=== PATIENT | male | born 1965 | race Caucasian/White ===

== ENCOUNTER 2021-02-05 15:38 | Outpatient (CLI) | payer OTHER, SELFPAY ==
--- NOTE | ~2021-02-05 | XR_ITS ---
EXAMINATION: XR chest 2V DATE: 02/05/2021 15:57 INDICATION: Shortness of breath TECHNIQUE: PA and lateral views of the chest are obtained. COMPARISON: 01/03/2014 FINDINGS: The lungs are free of acute opacities. There is no pleural effusion or pneumothorax. The ca rdiomediastinal silhouette is normal. There are bridging osteophytes at multiple levels in the spine, consistent with diffuse idiopathic skeletal hyperostosis (DISH). IMPRESSION: 1. No acute cardiopulmonary abnormality. Reviewed, dictated and finalized at location A.
== END 2021-02-05 15:39 | disposition home or self-care (01) ==
PROVIDERS: PCP Internal Medicine; Visit Provider Internal Medicine
DX: R06.02 Shortness of breath (principal); R06.00 Dyspnea, unspecified
CPT/HCPCS: 71046

== ENCOUNTER 2021-02-16 07:40 | Outpatient (CLI) | payer OTHER, SELFPAY ==
--- NOTE | 2021-02-16 | EST_ITS ---
Patient Info Name: Calvin Gomez Age: 55 years : 1965 Gender: Male Ht: 72 in Wt: 322 lbs BSA: 2.79 m2 HR: 66 bpm BP: 132 / 79 mmHg Heart Rhythm: Sinus Rhythm Exam Date: 02/16/2021 10:05 AM Exam Location: [facility] Stress Patient Status: Outpatient Admit Date: 02/16/2021 Staff Ordering Physician: Yaz Santiago NP Attending Provider: Yaz Santiago NP Exercise Technologist: Diana Neville [facility] Exercise Physician: Jose Roberto Campoverde DO Exam Type: CA stress slime w NM Study Info Indications R06.02 - Shortness of breath R07.89 - Other chest pain A regadenoson stress test was performed. Summary 1. 1. Negative lexiscan stress test for ischemic ST changes by ECG criteria. 2. 2. Stable hemodynamics throughout the test. 3. 3. Nuclear scan to follow and will be reported separately. Please correlate with it. 4. 4. Patient informed of the above results. Protocol: Lexiscan Stress ECG Details Stage: REST Duration (min): 1 min : 29 sec HR (bpm): 66 SBP (mmHg): 132 DBP (mmHg): 79 Stage: REST Duration (min): 8 min : 42 sec HR (bpm): 72 SBP (mmHg): 132 DBP (mmHg): 79 Stage: STAGE 1 Duration (min): 0 min : 59 sec HR (bpm): 71 SBP (mmHg): 129 DBP (mmHg): 79 Stage: RECOVERY Duration (min): 1 min : 0 sec HR (bpm): 86 SBP (mmHg): 129 DBP (mmHg): 79 Stage: RECOVERY Duration (min): 2 min : 0 sec HR (bpm): 79 SBP (mmHg): 129 DBP (mmHg): 79 Stage: RECOVERY Duration (min): 3 min : 0 sec HR (bpm): 78 SBP (mmHg): 131 DBP (mmHg): 80 Stage: RECOVERY Duration (min): 3 min : 14 sec HR (bpm): 75 SBP (mmHg): 131 DBP (mmHg): 80 Rest HR: 72 bpm Peak HR: 86 bpm Rest Sys BP: 132 mmHg Peak Sys BP: 131 mmHg Max Pred HR: 166 bpm % Max Pred HR: 52 % Target HR: 141 bpm Max RPP: 11,266 bpm*mmHg Termination Reason: Completed protocol Cardiac Symptoms: None Total Time: 1 min : 0 sec Rest Snell BP: 79 mmHg Peak Snell BP: 80 mmHg Total Dose: 0.4 mg Resting ECG Sinus rhythm. Stress ECG No ST changes. Arrhythmias None. Report Signatures
--- NOTE | 2021-02-16 | ECHO_ITS ---
Patient Info Name: Calvin Gomez Age: 55 years : 1965 Gender: Male Ht: 72 in Wt: 322 lbs BSA: 2.79 m2 HR: 65 bpm BP: 132 / 79 mmHg Heart Rhythm: Sinus Rhythm Exam Date: 02/16/2021 8:38 AM Exam Location: [facility] Patient Status: Outpatient Admit Date: 02/16/2021 Staff Ordering Physician: Yaz Santiago NP Skylights Assembler: Diana Neville RDCS Attending Provider: Yaz Santiago NP Exam Type: CA echo doppler color flow Study Info Indications R06.02 - Shortness of breath R07.89 - Other chest pain Complete two-dimensional, color flow and Doppler transthoracic echocardiogram is performed. Summary 1. Complete two-dimensional, color flow and Doppler transthoracic echocardiogram is performed. 2. Left ventricular chamber dimension is normal. 3. Left ventricular systolic function is normal, estimated at 60-65%. 4. There is mildly increased left ventricular wall thickness. 5. The left ventricular diastolic function is grade II diastolic dysfunction. 6. E/e' 10 is mildly elevated. 7. Left atrial chamber dimension is mildly enlarged. 8. There is moderate aortic valve sclerosis. 9. There is mild mitral valve regurgitation. Left Ventricle E/e' 10 is mildly elevated. Left ventricular chamber dimension is normal. Left ventricular systolic function is normal, estimated at 60-65%. There is mildly increased left ventricular wall thickness. The left ventricular diastolic function is grade II diastolic dysfunction. Right Ventricle Right ventricular chamber dimension is normal. Right ventricular systolic function is normal. Left Atria Left atrial chamber dimension is mildly enlarged. Right Atria Right atrial chamber dimension is normal. Aortic Valve The aortic valve is trileaflet. There is moderate aortic valve sclerosis. There is no aortic valve stenosis. There is no aortic valve regurgitation. Pulmonic Valve There is no pulmonic regurgitation. Mitral Valve There is no mitral valve stenosis. There is mild mitral valve regurgitation. Tricuspid Valve There is no tricuspid valve regurgitation. Pericardium/Pleural There is no pericardial effusion. Inferior Vena Cava Normal inferior vena cava with >50% collapse upon inspiration consistent with normal right atrial pressure, 5 mmHg. Aorta The aortic root size at the sinus of Valsalva is normal. Left Ventricular Outflow Tract Name Value Normal LVOT 2D LVOT Diameter 2.0 cm LVOT Doppler LVOT Peak Gradient 6 mmHg LVOT Mean Gradient 3 mmHg LVOT VTI 29 cm LVOT VTI/AV VTI Ratio 0.7 LVOT Stroke Volume 94 ml LVOT CO 5.7 l/min LVOT CI 2.0 l/min/m2 Pulmonic Valve Name Value Normal RVOT Doppler
--- NOTE | ~2021-02-16 | NM_ITS ---
EXAMINATION: NM slime stress w perfusion DATE: 02/16/2021 11:05 INDICATION: Dyspnea on exertion. Left chest pain. TECHNIQUE: Rest images were obtained following intravenous administration of 9.6 mCi Tc99m tetrofosmi n (Myoview). The patient was infused intravenously with Lexiscan (regadenoson). Then, 27.8 mCi Tc99m tetrofosmin (Myoview) was administered intravenously, and stress images were obtained. Data was recon structed into short axis and horizontal and vertical long axis SPECT images. Gated SPECT images were also obtained. COMPARISON: Chest 2 views 02/05/2021 FINDINGS: There is no definite reversible or fixed perfusion abnormality to suggest ischemia or infar ction. There is no segmental wall motion abnormality. Left ventricular ejection fraction measures > 70%. IMPRESSION: 1. No definite ischemia or infarct. 2. Normal left ventricular ejection fraction measuring >70%. Reviewed, dictated and finalized at location A.
--- NOTE | 2021-02-20 07:14 | WPDHOLTEREM ---
Holter/Event Monitor Holter/Event Monitor Date of procedure: 02/16/21 Holter/Event Procedure: 24 Hr Holter Monitor Indications: SOB/CP Conclusion: 1. 24 hour holter monitor on 02/16/21. 2. Underlying rhythm is sinus rhythm. HR range 52-122 bpm; average HR 78 bpm. 3. There are 8 premature supraventricular complexes. No supraventricular tachycardia. 4. No premature ventricular complexes. No ventricular tachycardia. 5. No sinoatrial or atrioventricular blocks. No significant pauses greater than 2 seconds. 6. Patient reports symptom of chest pain which demonstrate sinus tachycardia at 103 bpm.
== END 2021-02-16 07:41 | disposition home or self-care (01) ==
LOC: ANHCARD 07:52
PROVIDERS: PCP Internal Medicine
DX: Z20.822 Contact with and (suspected) exposure to COVID-19 (principal); E66.9 Obesity, unspecified; E11.9 Type 2 diabetes mellitus without complications; E78.5 Hyperlipidemia, unspecified; Z13.6 Encounter for screening for cardiovascular disorders
CPT/HCPCS: 78452; 93017; 93225; 93226; 93306; A9502; J2785

== ENCOUNTER 2021-02-25 10:36 | Outpatient (CLI) | payer OTHER, SELFPAY ==
--- NOTE | ~2021-02-25 | US_ITS ---
EXAMINATION: US art doppler w press LE BI DATE: 02/25/2021 12:44 CDT INDICATION: Diabetes. Leg pain. TECHNIQUE: Segmental pressures and plethysmographic and Doppler waveforms of the brachial and lower e xtremity arteries were obtained. COMPARISON: None. FINDINGS: Right and left brachial artery pressures of 140 mm Hg and 151 mm Hg, respectively, are concordant (no rmal difference <= 30 mmHg). The right high-thigh pressure index is 1.23 (normal > 1.2). The right ankle-brachial index (ANAND) is 1 .28 (normal >= 0.9-1.0). The right great toe-brachial index (TBI) is 0.92 (normal >= 0.60). The right lower extremity segmental pressure gradients are normal (normal gradients <= 20-30 mmHg between irma cent levels on the same leg or the same levels on the two legs). Arterial Doppler waveforms are bipha sic. The left high-thigh pressure index isn't measurable. The left ANAND is 1.05. The left TBI is 1.03. The left lower extremity segmental pressure gradients are normal. Arterial Doppler waveforms are biphasic . IMPRESSION: 1. Normal bilateral ankle and toe brachial indices. Reviewed, dictated and finalized at location A.
== END 2021-02-25 10:37 | disposition home or self-care (01) ==
LOC: ANHIMG 10:37
PROVIDERS: PCP Internal Medicine
DX: E66.9 Obesity, unspecified (principal); E11.9 Type 2 diabetes mellitus without complications; E78.5 Hyperlipidemia, unspecified; Z13.6 Encounter for screening for cardiovascular disorders
CPT/HCPCS: 93923

== ENCOUNTER 2021-07-23 08:21 | Outpatient (CLI) | payer OTHER, SELFPAY ==
--- NOTE | ~2021-07-23 | XR_ITS ---
EXAMINATION: XR lumbar spine 2-3V DATE: 07/23/2021 08:40 INDICATION: Low back pain. Left-sided radiculopathy. TECHNIQUE: 3 views of lumbar spine were obtained. COMPARISON: Lumbar spine radiographs 04/28/2017 FINDINGS: Bone alignment is normal. Vertebral body heights are normal. There are likely chronic bilat eral L5 pars defects. There is mildly decreased disc height at L3-L4 and moderately decreased disc he ight at L5-S1. There are endplate osteophytes at most levels. There is multilevel facet joint osteoar thritis, severe in lower lumbar spine. Surgical clips in the right upper quadrant are likely from cho lecystectomy. IMPRESSION: 1. Moderate lower lumbar spondylosis. 2. Chronic bilateral L5 pars defects. No spondylolisthesis. Reviewed, dictated and finalized at location B. 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
== END 2021-07-23 08:22 | disposition home or self-care (01) ==
LOC: ANHIMG 08:25
PROVIDERS: PCP Internal Medicine; Visit Provider Internal Medicine
DX: M47.816 Spondylosis without myelopathy or radiculopathy, lumbar region (principal)
CPT/HCPCS: 72100

== ENCOUNTER 2022-12-23 16:35 | Outpatient (CLI) | payer OTHER, SELFPAY ==
--- NOTE | ~2022-12-23 | XR_ITS ---
EXAMINATION: XR chest 2V 12/23/2022 16:47 INDICATION: Dyspnea PROCEDURE: 2 view chest COMPARISON: 02/05/2021 FINDINGS: The lungs are clear. The cardiomediastinal silhouette is within normal limits. There are no pleural effusions. There is no pneumothorax suspected. IMPRESSION: 1: NO ACUTE CARDIOPULMONARY DISEASE. Reviewed, dictated and finalized at location L.
== END 2022-12-23 16:36 | disposition home or self-care (01) ==
LOC: ANHIMG 16:37
PROVIDERS: PCP Internal Medicine; Visit Provider Internal Medicine
DX: R06.00 Dyspnea, unspecified (principal)
CPT/HCPCS: 71046

== ENCOUNTER 2023-02-02 13:48 | Outpatient (CLI) | payer OTHER, SELFPAY ==
--- NOTE | 2023-02-02 15:07 | PCRCNOTE ---
PT CAME IN FOR PULMONARY FUNCTION TESTING, DURING FIRST FLOW VOLUME LOOP PT PASSED OUT AND HIT HIS HEAD ON PRONGS ON PLETHYSMOGRAPHY BOX. PT CAME TO AFTER ABOUT 2 SECONDS. PT STATES HE FELT STRANGE. NO VISIBLE INJURY. DR ORONA'S OFFICE NOTIFIED AND DR ORONA SUGGESTED PT GO TO ER FOR EVALUATION. PT WAS AGREEABLE AND WENT TO ER FOR EVALUATION.
== END 2023-02-02 13:49 | disposition home or self-care (01) ==
LOC: ANHPFT 13:49
PROVIDERS: PCP Internal Medicine; Visit Provider Internal Medicine
DX: R06.02 Shortness of breath (principal)
CPT/HCPCS: 99199

== ENCOUNTER 2023-02-02 14:32 | Emergency (ER) | payer OTHER, SELFPAY ==
[2023-02-02] VITALS (37 sets, daily range): BP systolic 116–143; BP diastolic 72–93; PULSE 61–74; RESP 12–18; TEMP 36.6; O2SAT 94–100
--- NOTE | ~2023-02-02 | CT_ITS ---
EXAMINATION: CT BRAIN W/O DATE: 02/02/2023 18:36 INDICATION: Head injury. Syncope. TECHNIQUE: Computed tomography (CT) of the head was performed without intravenous contrast. The dose- length product was 681.00 mGy-cm. COMPARISON: No prior studies for comparison. FINDINGS: Normal mcneil-white differentiation. No acute intracranial hemorrhage, infarction, mass or ma ss effect. No ventriculomegaly or midline shift. Midline sagittal images demonstrate a normal corpus callosum, c raniovertebral junction and sella turcica. Basilar cisterns are patent. There is mild atrophy of the cerebellum, accelerated for age. Paranasal sinuses and mastoids are pneumatized. No depressed skull fractures. IMPRESSION: 1. Mild cerebellar atrophy, accelerated for age. No acute intracranial abnormality. Reviewed, dictated and finalized at location A. IMPRESSION: 1. Mild cerebellar atrophy, accelerated for age. No acute intracranial abnormal ity.
--- NOTE | ~2023-02-02 | XR_ITS ---
XR chest 2V 02/02/2023 17:30 Indication: Syncope. Intermittent chest pain. Procedure: 2 view chest Comparison: 12/23/2022 Findings: Heart size normal. No focal air space disease, pulmonary edema, pleural effusion or suspect ed pneumothorax. Calcified granuloma right lung base. Moderate thoracic spondylosis. Impression: 1: No acute cardiopulmonary disease. Reviewed, dictated and finalized at location A. Impression: 1: No acute cardiopulmonary disease.
--- NOTE | ~2023-02-02 | US_ITS ---
EXAMINATION:US venous doppler LE BI INDICATION:Syncope TECHNIQUE: Multiple grayscale, color flow and Doppler images of the right and left lower extremity de ep venous systems were obtained and reviewed. COMPARISON:No prior studies for comparison. FINDINGS: The common femoral, superficial femoral and popliteal veins demonstrate normal respiratory variation, augmentation and compressibility. Color flow is also seen within the posterior tibial, pe roneal, greater saphenous and profunda veins. IMPRESSION: 1: No lower extremity deep venous thrombosis. Reviewed, dictated and finalized at location A.
--- NOTE | 2023-02-02 14:39 | ECG_ITS ---
Measurements Intervals Golden Rate: 64 P: 31 DC: 198 QRS: -3 QRSD: 93 T: 35 QT: 394 QTc: 409 Interpretive Statements SINUS RHYTHM EARLY PRECORDIAL R/S TRANSITION CONSIDER INFERIOR INFARCT, AGE INDETERMINATE ABNORMAL ECG NO PREVIOUS ECG AVAILABLE FOR COMPARISON Electronically Signed On 02-02-2023 21:08:14 CDT by Jose Roberto Campoverde D.O.
[2023-02-02 15:34] LABS: Basophils Absolute Auto 0.1 K/mm3 (0.0-0.1); Basophils Percent Auto 0.9 % (0.2-1.2); Eosinophils Absolute Auto 0.2 K/mm3 (0-0.3); Eosinophils Percent Auto 2.3 % (0-4.4); Hematocrit 45.1 % (42.0-52.0); Hemoglobin 14.9 g/dL (14.0-18.0); Immature Granulocyte Absolute 0.02 K/mm3 (0.00-0.031); Immature Granulocyte Percent A 0.3 % (0-0.5); Lymphocytes Absolute Auto 2.32 K/mm3 (0.9-3.2); Mean Corpuscular Hemoglobin 29.9 pg (26-34); Mean Corpuscular Volume 90.4 fl (80-100); Mean Platelet Volume 10.5 fl (7.4-10.4); Monocytes Absolute Auto 0.5 K/mm3 (0.1-0.6); Monocytes Percent Auto 7.3 % (2.6-8.5); Neutrophils Absolute Auto 3.4 K/mm3 (1.3-6.7); Neutrophils Percent Auto 53.2 % (45.5-73.1); Platelet Count Result 241 k/mm3 (150-375); Red Blood Count 4.99 M/mm3 (4.6-6.20); Red Cell Distribution Width 13.5 % (11.5-14.5); White Blood Count 6.5 K/mm3 (4.5-10.0)
[2023-02-02 15:49] LABS: Alanine Aminotransferase 147 U/L (6-50); Albumin Level 4.7 g/dL (3.5-5.1); Alkaline Phosphatase 97 U/L (38-126); Anion Gap 11 mmol/L (8-16); Aspartate Amino Transferase 131 U/L (17-59); Bilirubin,Total 0.9 mg/dL (0.2-1.3); Blood Urea Nitrogen 20 mg/dL (9-20); Calcium 9.3 mg/dL (8.4-10.2); Carbon Dioxide 24 mmol/L (22-30); Chloride 101 mmol/L (98-107); Estimated CRCL calculation 125 ml/min; Estimated Glomerular Filt Rate > 60; Glucose 125 mg/dL (65-110); Potassium 3.8 mmol/L (3.4-5.0); Sodium 136 mmol/L (137-145)
[2023-02-02 18:09] LABS: Partial Thromboplastin Time 28.2 SECONDS (22.3-36.8); Prothrombin Time 13.6 Seconds (11.1-14.7)
--- NOTE | 2023-02-02 18:23 | ED.SYNCOPE ---
HPI - Syncope General Chief Complaint: Syncope Stated Complaint: syncopal episode during a pulmonary function test Time Seen by Provider: 02/02/23 17:18 Source: patient Mode of arrival: ambulatory Limitations: no limitations History of Present Illness HPI narrative: This is a 57 year old male that presents to the ER after a syncopal episode today. Reports he was doing a pulmonary function test to evaluate for possible COPD. He was taking his second deep breath when he passed out. Reports he hit his head. Reports the tech told him he was out for a few seconds. Reports he has not passed out before. He has been having trouble with tightness in the chest and shortness of breath for which he has been evaluated by his PCP. Reports feeling foggy in the head currently and some tightness in his chest. Also reports some lower extremity edema. Denies fever, cough, vision changes, vomiting, numbness or weakness. Related Data Home Medications Medication Instructions Recorded Confirmed amlodipine 10 mg tablet 10 mg PO DAILY 03/29/22 09/01/22 aspirin 81 mg tablet,delayed 81 mg PO DAILY 03/29/22 09/01/22 release (Adult Low Dose Aspirin) atorvastatin 10 mg tablet 10 mg PO DAILY 03/29/22 09/01/22 diclofenac potassium 25 mg capsule 25 mg PO BID 03/29/22 09/01/22 empagliflozin 10 mg tablet 10 mg PO DAILY 03/29/22 09/01/22 (Jardiance) metformin 500 mg tablet 500 mg PO BID 03/29/22 09/01/22 montelukast 10 mg tablet 10 mg PO DAILY 03/29/22 09/01/22 nebivolol 5 mg tablet 5 mg PO DAILY 03/29/22 09/01/22 nebivolol 5 mg tablet (Bystolic) 5 mg PO DAILY 03/29/22 09/01/22 omeprazole 40 mg capsule,delayed 40 mg PO DAILY 03/29/22 09/01/22 release semaglutide 0.25 mg or 0.5 mg (2 0.25 mg subcut WEEKLY 03/29/22 09/01/22 mg/1.5 mL) subcutaneous pen injector (Ozempic) Allergies Allergy/AdvReac Type Severity Reaction Status Date / Time Sulfa (Sulfonamide Allergy Unknown unknown Verified 02/02/23 14:33 Antibiotics) Review of Systems Review of Systems: CONSTITUTIONAL: Denies fever EYES: Denies visual changes CARDIOVASCULAR: Reports chest tightness, and edema. RESPIRATORY: Denies cough or dyspnea. GASTROINTESTINAL: Denies vomiting NEUROLOGIC: Denies headache, numbness, or weakness. All systems reviewed & are unremarkable except as noted in HPI and below PMFSH Past Medical History Medical History Acid reflux History of stress test (~2017) Sleep apnea Surgical History Surgical History History of carpal tunnel surgery (~2016) History of cholecystectomy (~1991) History of dental surgery (~1985) [place] teeth removal History of removal of cyst (~2012) Family History Family History Mother Family history of kidney disease Father Family history of congenital heart disease Social History Social History Smoking status: Former smoker Tobacco type: cigarettes Smoking end date: 07/11/06 Alcohol intake: current Substance use: never Substance use type: does not use Lack of Transportation: No Lack of Food: Never True Current Housing: I Have Housing Concerned About Future Housing: No Difficulty Paying Gas/Electric Bills: No Difficulty Paying for Meds: No Currently Unemployed: No Education: Bachelor's Degree Difficulty w/ Childcare or Family Care: No Exam Narrative: GENERAL: Well-appearing, well-nourished, and in no acute distress. HEAD: Normocephalic, atraumatic. EYES: PERRLA and EOMI. ENT: Nares clear, no rhinorrhea or epistaxis. Mucous membranes moist. Oropharynx without tonsillar hypertrophy exudate or other lesions. Bilateral TMs pearly mcneil non-bulging NECK: Supple. No adenopathy or masses. CHEST: Clear to auscultation. No respiratory distress. No wheezes rales
[2023-02-02 18:25] LABS: Troponin I < 0.012 ng/mL (0.000-0.034)
[2023-02-02 18:52] LABS: D Dimer 0.32 ug/mL (<0.48)
[2023-02-02 18:54] LABS: NT Pro B Type Natriuretic Pept < 20 pg/mL (19.9-100)
[2023-02-02 21:29] LABS: Troponin I < 0.012 ng/mL (0.000-0.034)
== END 2023-02-02 21:52 | disposition home or self-care (01) ==
PROVIDERS: Preventive Medicine Aerospace Medicine; Emergency Provider Physician Assistant; PCP Internal Medicine
DX: R55 Syncope and collapse (principal); S09.90XA Unspecified injury of head, initial encounter; K21.9 Gastro-esophageal reflux disease without esophagitis; G47.30 Sleep apnea, unspecified; W19.XXXA Unspecified fall, initial encounter
CPT/HCPCS: 36415; 70450; 71046; 80053; 83880; 84484; 85025; 85380; 85610; 85730; 93005; 93970; 99284

== ENCOUNTER 2023-07-18 12:10 | Outpatient (CLI) | payer OTHER, SELFPAY ==
--- NOTE | ~2023-07-18 | XR_ITS ---
Clinical Indication: Dyspnea PA and lateral views of the chest: Comparison: 02/02/2023 Findings: Stable calcified right basilar granuloma. The lungs are otherwise clear, without evidence o f focal consolidation or pleural effusion. Cardiomediastinal silhouette is within normal limits. Bon es and soft tissues are unremarkable. Impression: No acute abnormality. Reviewed, dictated and finalized at location . 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
== END 2023-07-18 12:11 | disposition home or self-care (01) ==
PROVIDERS: PCP Internal Medicine; Visit Provider Internal Medicine
DX: R06.00 Dyspnea, unspecified (principal)
CPT/HCPCS: 71046

== ENCOUNTER 2024-01-05 00:46 | Day surgery (SDC) | payer OTHER, SELFPAY ==
[2023-12-21 13:09] VITALS: BMI 43.4
[2024-01-05 06:28] VITALS: BP 140/90; PULSE 96; RESP 17; TEMP 36; O2SAT 97; BMI 43.1
[2024-01-05] MEDS: LACTATED RINGERS 1,000 ML 150 ML IV CONT (06:39)
[2024-01-05 06:42] LABS: Glucose Point of Care 203 mg/dl (65-105)
--- NOTE | 2024-01-05 07:08 | WPDANESEPPF ---
Anes - Initial Pre Proc Eval Procedure: Operation Date: 01/05/24 07:30 Proposed Procedures p Colonoscopy - Jerardo Coughlin MD Date/Time: 01/05/24 07:08 Surgeon: Jerardo Coughlin MD Pre Op Diagnosis: Hemorrhage of anus/rectum Patient Data Age: 58 Gender: M Height: 1.83 m Weight: 144.3 kg Last Vital Signs Temp 96.8 F L 01/05/24 06:28 Pulse 96 01/05/24 06:28 Resp 17 01/05/24 06:28 BP 140/90 01/05/24 06:28 Pulse Ox 97 01/05/24 06:28 O2 Del Method Room Air 01/05/24 06:28 Allergies Allergy/AdvReac Type Severity Reaction Status Date / Time Sulfa (Sulfonamide Allergy Unknown unknown Verified 01/05/24 06:27 Antibiotics) Home Medications Medication Instructions Recorded Confirmed Type aspirin 81 mg tablet,delayed 81 mg PO DAILY 03/29/22 01/05/24 History release (Adult Low Dose Aspirin) atorvastatin 10 mg tablet 10 mg PO DAILY 03/29/22 01/05/24 History empagliflozin 10 mg tablet 10 mg PO DAILY 03/29/22 01/05/24 History (Jardiance) metformin 500 mg tablet 500 mg PO BID 03/29/22 01/05/24 History montelukast 10 mg tablet 10 mg PO DAILY 03/29/22 01/05/24 History nebivolol 5 mg tablet (Bystolic) 5 mg PO DAILY 03/29/22 01/05/24 History omeprazole 40 mg capsule,delayed 40 mg PO DAILY 03/29/22 01/05/24 History release semaglutide 0.25 mg or 0.5 mg (2 0.25 mg subcut WEEKLY 03/29/22 01/05/24 History mg/1.5 mL) subcutaneous pen injector (Ozempic) Laboratory Tests 01/05/24 06:34 POC Capillary Glucose 203 H mg/dl (65-105) Patient hx anesthesia problems: none Family hx anesthesia problems: none Results Review: All pre-operative results and documents have been reviewed as part of the pre-operative evaluation. [facility] Past Medical History Medical History Acid reflux History of stress test (~2017) Sleep apnea Surgical History Surgical History History of carpal tunnel surgery (~2016) History of cholecystectomy (~1991) History of dental surgery (~1985) [place] teeth removal History of removal of cyst (~2012) Family History Family History Mother Family history of kidney disease Father Family history of congenital heart disease Social History Social History Smoking status: Former smoker Tobacco type: cigarettes Smoking end date: 07/11/06 Alcohol intake: current Substance use: never Substance use type: does not use Lack of Transportation: No Lack of Food: Never True Current Housing: I Have Housing Concerned About Future Housing: No Difficulty Paying Gas/Electric Bills: No Difficulty Paying for Meds: No Currently Unemployed: No Education: Bachelor's Degree Difficulty w/ Childcare or Family Care: No Living arrangements: with family Spiritual care concerns: No Anes - Eval Final PreProcedure Day of Procedure 01/05/24 07:08 Patient weight: obese Heart: regular rate and rhythm Lungs: clear to auscultation Airway: Mallampati scale class II and special considerations (Many missing teeth, upper and lower, none loose per his report. ) Neurological: alert and oriented Last oral intake: >/= 8 hours ASA classification: III Emergent: no Anesthetic plan: proceed Anesthesia type and monitoring: general GIVS and standard monitoring Results Review: All pre-operative results and documents have been reviewed as part of the pre-operative evaluation. HTN, VICKIE on CPAP, DM ([phone]). Informed Consent: The patient's anesthetic plan and its attendant risks and benefits were discussed with the patient/family/POA. Questions were solicited and answers provided to the satisfaction of the patient/family/POA.
--- NOTE | 2024-01-05 07:19 | PM.HPGS ---
History of Present Illness History of Present Illness Consent: Risks, benefits, and alternatives have been discussed and questions answered. Patient agrees to proceed with procedure. Chief complaint: Hemorrhage of anus/rectum Narrative: Calvin Gomez is a 58 year old male with blood in stool, last colonoscopy ~ 5 years ago Review of Systems Review of Systems: All systems reviewed & are unremarkable except as noted in HPI and below PMFSH Past Medical History Medical History (Updated 01/05/24 @ 07:20 by Jerardo Coughlin MD) Acid reflux History of stress test (~2017) Rectal bleeding Sleep apnea Surgical History Surgical History History of carpal tunnel surgery (~2016) History of cholecystectomy (~1991) History of dental surgery (~1985) [place] teeth removal History of removal of cyst (~2012) Family History Family History Mother Family history of kidney disease Father Family history of congenital heart disease Social History Social History Smoking status: Former smoker Tobacco type: cigarettes Smoking end date: 07/11/06 Alcohol intake: current Substance use: never Substance use type: does not use Lack of Transportation: No Lack of Food: Never True Current Housing: I Have Housing Concerned About Future Housing: No Difficulty Paying Gas/Electric Bills: No Difficulty Paying for Meds: No Currently Unemployed: No Education: Bachelor's Degree Difficulty w/ Childcare or Family Care: No Living arrangements: with family Spiritual care concerns: No Meds Home Medications and Allergies Home Medications Medication Instructions Recorded Confirmed Type aspirin 81 mg tablet,delayed 81 mg PO DAILY 03/29/22 01/05/24 History release (Adult Low Dose Aspirin) atorvastatin 10 mg tablet 10 mg PO DAILY 03/29/22 01/05/24 History empagliflozin 10 mg tablet 10 mg PO DAILY 03/29/22 01/05/24 History (Jardiance) metformin 500 mg tablet 500 mg PO BID 03/29/22 01/05/24 History montelukast 10 mg tablet 10 mg PO DAILY 03/29/22 01/05/24 History nebivolol 5 mg tablet (Bystolic) 5 mg PO DAILY 03/29/22 01/05/24 History omeprazole 40 mg capsule,delayed 40 mg PO DAILY 03/29/22 01/05/24 History release semaglutide 0.25 mg or 0.5 mg (2 0.25 mg subcut WEEKLY 03/29/22 01/05/24 History mg/1.5 mL) subcutaneous pen injector (Ozempic) Allergies Allergy/AdvReac Type Severity Reaction Status Date / Time Sulfa (Sulfonamide Allergy Unknown unknown Verified 01/05/24 06:27 Antibiotics) Vital Signs Vital Signs - 24 hr 01/05/24 06:28 Temperature 96.8 F L Pulse Rate 96 Respiratory Rate 17 Blood Pressure 140/90 Pulse Oximetry 97 Oxygen Delivery Room Air Exam Const: General: comfortable and no acute distress HENMT: Face/Nose/Sinus: Normal nares present Eyes: General: appearance normal, both eyes and all related structures Neck: Neck: no JVD Resp: Auscultation: clear to auscultation bilaterally Cardio: Rate: regular rate Rhythm: regular rhythm GI: Inspection: non-distended GI Palp: Yes Soft to palpation Skin: General skin exam: normal color Neuro: General: gait normal Speech: normal speech Extrem: General: normal to inspection Psych: Mental Status: mental status grossly normal Assessment and Plan Assessment and plan (1) Rectal bleeding: Code(s): K62.5 - Hemorrhage of anus and rectum Status: Acute Assessment and Plan: colonoscopy
[2024-01-05 07:56] VITALS: BP 129/82; PULSE 81; RESP 17; O2SAT 93
[2024-01-05 08:06] VITALS: BP 134/86; PULSE 79; RESP 14; O2SAT 94
[2024-01-05 08:16] VITALS: BP 149/96; PULSE 80; RESP 16; O2SAT 97
== END 2024-01-05 08:37 | disposition home or self-care (01) ==
PROVIDERS: PCP Internal Medicine; Visit Provider Internal Medicine Gastroenterology
PROC: 0DJD8ZZ Inspection of Lower Intestinal Tract, Via Natural or Artificial Opening Endoscopic (ICD-10-PCS; CPT 45378; principal; 2024-01-05 07:30)
DX: D12.2 Benign neoplasm of ascending colon (principal); D12.3 Benign neoplasm of transverse colon; D12.4 Benign neoplasm of descending colon; K64.8 Other hemorrhoids; Z87.891 Personal history of nicotine dependence; Z79.82 Long term (current) use of aspirin; Z79.84 Long term (current) use of oral hypoglycemic drugs; Z79.85 Long-term (current) use of injectable non-insulin antidiabetic drugs
CPT/HCPCS: 45385; 82948; 88305; J2704; J7120

== ENCOUNTER 2024-04-16 11:06 | Outpatient (CLI) | payer OTHER, SELFPAY ==
--- NOTE | ~2024-04-16 | XR_ITS ---
Right Knee Technique: AP, lateral, and sunrise views were obtained. Clinical History: Osteoarthritis Findings: No fracture or dislocation is seen. Osseous alignment is anatomic. There is minimal spurrin g at the intercondylar notch. Soft tissues are unremarkable. No joint effusion is seen. Impression: Minimal spurring, as above. Reviewed, dictated and finalized at location M. Impression: Minimal spurring, as above.
--- NOTE | ~2024-04-16 | XR_ITS ---
Left Knee Technique: AP, lateral, and sunrise views were obtained. Clinical History: Osteoarthritis Findings: No fracture or dislocation is seen. Osseous alignment is anatomic. There is mild spurring o f the patella, intercondylar notch, and joint lines. Soft tissues are unremarkable. No joint effusion is seen. Impression: Mild tricompartmental degenerative spurring, as above. Reviewed, dictated and finalized at location M. Impression: Mild tricompartmental degenerative spurring, as above.
== END 2024-04-16 11:07 | disposition home or self-care (01) ==
PROVIDERS: PCP Internal Medicine; Visit Provider Orthopaedic Surgery
DX: M17.0 Bilateral primary osteoarthritis of knee (principal)
CPT/HCPCS: 73564

== ENCOUNTER 2024-07-24 17:29 | Outpatient (CLI) | payer OTHER, SELFPAY ==
--- NOTE | ~2024-07-24 | XR_ITS ---
HISTORY: M17.0 - Bilateral primary osteoarthritis of knee COMPARISON: 04/16/2024 TECHNIQUE: 4 views of the left knee were performed FINDINGS: No acute or subacute fracture. Medial tibiofemoral joint space narrowing, demonstrating near complete obliteration of the medial tib iofemoral joint space when standing. No suprapatellar joint effusion is identified. The infrapatellar joint space is clear. Alignment is preserved. Ossification of the insertion of the quadriceps tendon is present. IMPRESSION: Severe degenerative disease, without acute fracture or joint effusion. Reviewed, dictated and finalized at location A. [employer] DEPARTMENT IMPRESSION: Severe degenerative disease, without acute fracture or joint effus ion.
--- NOTE | ~2024-07-24 | XR_ITS ---
HISTORY: M17.0 - Bilateral primary osteoarthritis of knee COMPARISON: 04/16/2024 TECHNIQUE: 4 views of the right knee were performed primarily in the standing position FINDINGS: No acute or subacute fracture. Medial tibiofemoral joint space narrowing is identified. Spurring is detected within the intercondylar notch, unchanged from April examination. Ossification of the insertion of the quadriceps tendon is present. Suprapatellar joint effusion is noted. The infrapatellar patellar joint space is clear. IMPRESSION: Degenerative disease, without acute fracture. Suprapatellar joint effusion. Reviewed, dictated and finalized at location A. OFF SAW[employer] LOG
== END 2024-07-24 17:30 | disposition home or self-care (01) ==
PROVIDERS: PCP Internal Medicine; Visit Provider Orthopaedic Surgery
DX: M17.0 Bilateral primary osteoarthritis of knee (principal); M25.461 Effusion, right knee
CPT/HCPCS: 73564

== ENCOUNTER 2024-10-17 14:32 | Emergency (ER) | payer OTHER, SELFPAY ==
--- NOTE | ~2024-10-17 | CT_ITS ---
CTA brain carotid Ordering provider: Saige Cary APRN History: . thunder clap headache numbness L side face . Comparison: February 02, 2023 Technique: CT angiogram head and neck was performed following timed intravenous injection of contrast . Thin slice axial images and reformatted coronal images were obtained. Three dimensional reformatted images of the brain were also obtained using a [employer] workstation. Radiation reduction technique uti lized. The dose-length product was 1883.51 mGy-cm. 100 mL Omnipaque 350 was given IV. FINDINGS: HEAD: --ANTERIOR AND MIDDLE CEREBRAL ARTERIES AND BRANCHES: Normal caliber and contour. --INTERNAL CAROTID ARTERIES: Mild atheromatous disease but no significant stenosis. No occlusion. --BASILAR ARTERY AND BRANCHES: Normal caliber and contour. No atheromatous disease. --POSTERIOR CEREBRAL ARTERIES: Normal caliber and contour --POSTERIOR COMMUNICATING ARTERIES: The right is demonstrated and continues as posterior cerebral art james. 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 --ANEURYSM: None visualized. --BRAIN: Normal. --BONES AND SUPERFICIAL SOFT TISSUES: Normal. --PARANASAL SINUSES AND MASTOIDS: Normal. NECK: --RIGHT CERVICAL CAROTID SYSTEM: Mild atheromatous disease of the carotid bulb and proximal internal carotid artery without significant stenosis. Percent stenosis per NASCET criteria is 0%. No carotid dissection. Otherwise, no significant atheromatous disease or stenosis of the cervical carotid system . --LEFT CERVICAL CAROTID SYSTEM: Mild atheromatous disease of the carotid bulb and proximal internal c arotid artery without significant stenosis. Percent stenosis per NASCET criteria is 0%. No carotid d issection. Otherwise, no significant atheromatous disease or stenosis of the cervical carotid system. --VERTEBRAL ARTERIES: Narrowing of the caliber of the left vertebral artery is noted. Otherwise, Norm al caliber and contour. --VISUALIZED AORTIC ARCH AND BRANCHING VESSELS: Normal caliber and contour. No significant atheromato us disease. --SOFT TISSUES: Normal. --CERVICAL SPINE: Age appropriate degenerative changes. IMPRESSION: 1. Normal CTA head and neck. Percent stenosis per NASCET criteria is 0%. Reviewed, dictated and finalized at location A.
[2024-10-17 14:36] VITALS: BP 149/98; PULSE 105; RESP 18; TEMP 36.4; O2SAT 97
--- NOTE | 2024-10-17 15:20 | ECG_ITS ---
Test Date: 2024-10-17 16:02:14 Measurements Intervals [place] Rate: 96 P: 38 [place]: 172 QRS: -6 QRSD: 98 T: 71 QT: 336 QTc: 425 Interpretive Statements SINUS RHYTHM LOW QRS VOLTAGE IN PRECORDIAL LEADS CONSIDER ANTERIOR INFARCT, AGE INDETERMINATE CONSIDER INFERIOR INFARCT, AGE INDETERMINATE ABNORMAL ECG No previous ECG available for comparison Electronically Signed On 10-17-2024 18:10:59 CDT by Jose Roberto Campoverde D.O.
--- NOTE | 2024-10-17 15:22 | ED_ITS ---
HPI - Headache General Chief Complaint: Headache <Saige Cary APRN - Last Filed: 10/17/24 18:35> Stated Complaint: headache <Saige Cary APRN - Last Filed: 10/17/24 18:35> Time Seen by Provider: 10/17/24 15:04 <Saige Cary APRN - Last Filed: 10/17/24 18:35> History of Present Illness HPI Narrative: Patient is a 58-year-old male who presents to the ER with a headache that started around 1:30 p.m. this afternoon. He reports approximately 6 days ago he had a thunderclap headache that resolved but then the headache came back today. Patient endorses pressure behind his left eye, left facial numbness that radiates to his right side, and left blurry vision. He denies any injury to the site. Patient doors is a history of high blood pressure, diabetes, hyperlipidemia. He reports his your nose and throat doctor took him off of his baby aspirin yesterday due to nose bleeds. Patient denies any recent fevers, neck stiffness, mastoid tenderness. <Saige Cary APRN - Last Filed: 10/17/24 18:35> Related Data Home Medications: Home Medications ?Medication ?Instructions ?Recorded ?Confirmed ?Last Taken ?Type aspirin 81 mg tablet,delayed 81 mg PO DAILY 03/29/22 08/01/24 Unknown History release (Adult Low Dose Aspirin) atorvastatin 10 mg tablet 10 mg PO DAILY 03/29/22 08/01/24 Unknown History metformin 500 mg tablet 500 mg PO BID 03/29/22 08/01/24 Unknown History omeprazole 40 mg capsule,delayed 40 mg PO DAILY 03/29/22 08/01/24 Unknown History release semaglutide 0.25 mg or 0.5 mg (2 0.25 mg subcut WEEKLY 03/29/22 08/01/24 Unknown History mg/1.5 mL) subcutaneous pen injector (Ozempic) <Saige Cary APRN - Last Filed: 10/17/24 18:35> Allergies/Adverse Reactions: Allergies Allergy/AdvReac Type Severity Reaction Status Date / Time Sulfa (Sulfonamide Allergy Unknown unknown Verified 08/01/24 08:33 Antibiotics) <Saige Cary APRN - Last Filed: 10/17/24 18:35> Review of Systems 2 Review of Systems: All systems reviewed & are unremarkable except as noted in HPI and below <Saige Cary APRN - Last Filed: 10/17/24 18:35> PMFSH Past Medical History Medical History: Medical History Rectal bleeding Acid reflux History of stress test (~2017) Sleep apnea <Saige Cary APRN - Last Filed: 10/17/24 18:35> Surgical History Surgical History: Surgical History History of carpal tunnel surgery (~2016) History of dental surgery (~1985) [place] teeth removal History of cholecystectomy (~1991) History of removal of cyst (~2012) <Saige Cary APRN - Last Filed: 10/17/24 18:35> Family History Family History: Family History Mother Family history of kidney disease Father Family history of congenital heart disease <Saige Cary APRN - Last Filed: 10/17/24 18:35> Social History Social History: Social History Smoking status: Former smoker Tobacco type: cigarettes Smoking end date: 07/11/06 Alcohol intake: current Substance use: never Substance use type: does not use Lack of Transportation: No Lack of Food: Never True Current Housing: I Have Housing Concerned About Future Housing: No Difficulty Paying Gas/Electric Bills: No Difficulty Paying for Meds: No Currently Unemployed: No Education: Bachelor's Degree Difficulty w/ Childcare or Family Care: No Living arrangements: with family Spiritual care concerns: No <Saige Cary APRN - Last Filed: 10/17/24 18:35> Exam 2 Narrative: GENERAL: Well appearing, well-nourished, non-toxic, in no acute distress. HEAD: Normocephalic, atraumatic. + mild photophobia NECK: Supple. No adenopathy, no masses. RESPIRATORY: Airway patent, respirations nonlabored. Clear to auscultation bilaterally, no rales, rhonchi, wheezing. CARDIOVASCULAR: Regular rate and rhythm without murmurs, rubs, or gallops. Peripheral pulses 2+ and equal bilaterally. ABDOMINAL: Soft, nontender, nondistended, no hepatosplenomegaly. Normoactive BS. MUSCULOSKELETAL: Moves all extremities. Strength/ROM intact without gross deformities. SKIN: Warm, dry, normal color. No rashes. NEURO: A&O X3. Speech clear. Cranial nerves II-XII intact. No ataxic movements. PSYCHIATRIC: Appropriate mood and affect. Normal interaction. <Saige Cary APRN - Last Filed: 10/17/24 18:35> Course CRIMINAL LEGAL ASSISTANT/PA Physician Supervision CRIMINAL LEGAL ASSISTANT discussed patient with me. She had strong concerns about an intracranial process and was inquire about activating a code stroke. She reported that patient had a thunderclap headache last week and that was having unilateral headache symptoms. We discussed that his symptoms did not sound particularly like a stroke but I did concur with obtaining expedient imaging. In this wound was available for consultation patient was in the emergency department but did not personally evaluate and was not directly involved in their care. <Eli Wilson MD - Last Filed: 10/18/24 11:26> Vital Signs Vital signs: Vital Signs Temperature 97.6 F 10/17/24 14:36 Pulse Rate 105 H 10/17/24 14:36 Respiratory Rate 18 10/17/24 14:36 Blood Pressure 149/98 H 10/17/24 14:36 Pulse Oximetry 97 10/17/24 14:36 Oxygen Delivery Room Air 10/17/24 14:36 Temperature 97.4 F L 10/17/24 16:14 Pulse Rate 94 10/17/24 18:43 Respiratory Rate 20 10/17/24 18:43 Blood Pressure 151/87 H 10/17/24 18:43 Pulse Oximetry 100 10/17/24 18:43 Oxygen Delivery Room Air 10/17/24 14:36 <Saige Cary APRN - Last Filed: 10/17/24 18:35> Vital Signs Temperature 97.6 F 10/17/24 14:36 Pulse Rate 105 H 10/17/24 14:36 Respiratory Rate 18 10/17/24 14:36 Blood Pressure 149/98 H 10/17/24 14:36 Pulse Oximetry 97 10/17/24 14:36 Oxygen Delivery Room Air 10/17/24 14:36 Temperature 97.4 F L 10/17/24 16:14 Pulse Rate 94 10/17/24 18:43 Respiratory Rate 20 10/17/24 18:43 Blood Pressure 151/87 H 10/17/24 18:43 Pulse Oximetry 100 10/17/24 18:43 Oxygen Delivery Room Air 10/17/24 14:36 <Eli Wilson MD - Last Filed: 10/18/24 11:26> MDM - Headache MDM Narrative Medical decision making narrative: Patient is a 58-year-old male who presents to the ER with a headache that started around 1:30 p.m. this afternoon. He reports approximately 6 days ago he had a thunderclap headache that resolved but then the headache came back today. Patient endorses pressure behind his left eye, left facial numbness that radiates to his right side, and left blurry vision. He denies any injury to the site. Patient doors is a history of high blood pressure, diabetes, hyperlipidemia. He reports his your nose and throat doctor took him off of his baby aspirin yesterday due to nose bleeds. Patient denies any recent fevers, neck stiffness, mastoid tenderness. Labs Ordered: CBC, CMP, glucose point of care, PTT, INR, troponin Imaging Ordered: CTA brain carotid Medications Ordered: 1 L normal saline IV bolus, Reglan 10 mg IV, Toradol 15 mg IV, Benadryl 25 mg IV Results: Pt's CTA scan indicates Normal CTA head and neck. Percent stenosis per NASCET criteria is 0%. Patient's blood glucose on his CMP was 338. Diagnosis: Migraine headache, hyperglycemia Patient Education/Shared MDM: Results of imaging and blood work shared with patient and his . He endorses improvement following medication administration. Patient strongly advised to maintain hydration status upon discharge and follow-up with his PCP as soon as possible for blood sugar management. Pt's reports he already has a follow-up appointment scheduled with his PCP tomorrow. He will be discharged home with no new prescriptions. Strict return precautions provided. Patient verbalized understanding and is in agreement with plan. Vital signs stable at time of discharge. All questions answered. <Saige Cary APRN - Last Filed: 10/17/24 18:35> Differential Diagnosis Differential diagnosis: Likely migraine, tension headache, subarachnoid hemorrhage, headache, sinusitis and other (Hyperglycemia) <Saige Cary APRN - Last Filed: 10/17/24 18:35> Lab Data Attestation: I reviewed the patient's lab results. <Saige Cary APRN - Last Filed: 10/17/24 18:35> Result diagrams: 10/17/24 15:28 10/17/24 15:35 <Saige Cary APRN - Last Filed: 10/17/24 18:35> Labs: Lab Results 10/17/24 10/17/24 10/17/24 Range/Units 15:28 15:35 15:55 WBC 9.2 (4.5-10.0) K/mm3 RBC 5.76 (4.6-6.20) M/mm3 Hgb 16.4 (14.0-18.0) g/dL Hct 49.6 (42.0-52.0) % MCV 86.1 (80-100) fl MCH 28.5 (26-34) pg MCHC 33.1 (32-36) g/dl RDW 13.3 (11.5-14.5) % Plt Count 245 (150-375) k/mm3 MPV 10.8 H (7.4-10.4) fl Immature Gran % (Auto) 0.3 (0-0.5) % Neut % (Auto) 61.3 (45.5-73.1) % Lymph % (Auto) 30.0 (18.3-44.2) % [place] % (Auto) 6.0 (2.6-8.5) % Eos % (Auto) 1.7 (0-4.4) % Baso % (Auto) 0.7 (0.2-1.2) % Lymph # (Auto) 2.75 (0.9-3.2) K/mm3 [place] # (Auto) 0.6 (0.1-0.6) K/mm3 Eos # (Auto) 0.2 (0-0.3) K/mm3 Baso # (Auto) 0.1 (0.0-0.1) K/mm3 Abs Immat Gran (auto) 0.03 (0.00-0.031) K/mm3 Absolute Neuts (auto) 5.6 (1.3-6.7) K/mm3 Absolute Nucleated RBC 0.000 (0.0-0.012) K/mm3 Nucleated RBC % 0.0 (0.0-0.2) % PT 13.5 (11.1-14.7) Seconds INR 1.0 APTT 28.6 (22.3-36.8) Seconds Sodium 134 L (137-145) mmol/L Potassium 4.2 (3.4-5.0) mmol/L Chloride 97 L (98-107) mmol/L Carbon Dioxide 23 (22-30) mmol/L Anion Gap 14 H (4-12) mmol/L BUN 19 (9-20) mg/dL Creatinine 0.74 0.80 (0.7-1.3) mg/dL Estim Creat Clear Calc 141 131 ml/min Estimated GFR > 60 > 60 (59 - ) Glucose 338 H (65-110) mg/dL POC Capillary Glucose 345 H (65-105) mg/dl Calcium 9.6 (8.4-10.2) mg/dL Total Bilirubin 1.1 (0.2-1.3) mg/dL AST 95 H (17-59) U/L ALT 114 H (6-50) U/L Alkaline Phosphatase 123 (38-126) U/L Troponin I < 0.012 (0.000-0.034) ng/mL Total Protein 8.0 (6.3-8.2) g/dL Albumin 4.8 (3.5-5.1) g/dL <Saige Cary, MANAGER TECHNICAL SERVICES - Last Filed: 10/17/24 18:35> Lab Results 10/17/24 10/17/24 10/17/24 Range/Units 15:28 15:35 15:55 WBC 9.2 (4.5-10.0) K/mm3 RBC 5.76 (4.6-6.20) M/mm3 Hgb 16.4 (14.0-18.0) g/dL Hct 49.6 (42.0-52.0) % MCV 86.1 (80-100) fl MCH 28.5 (26-34) pg MCHC 33.1 (32-36) g/dl RDW 13.3 (11.5-14.5) % Plt Count 245 (150-375) k/mm3 MPV 10.8 H (7.4-10.4) fl Immature Gran % (Auto) 0.3 (0-0.5) % Neut % (Auto) 61.3 (45.5-73.1) % Lymph % (Auto) 30.0 (18.3-44.2) % [place] % (Auto) 6.0 (2.6-8.5) % Eos % (Auto) 1.7 (0-4.4) % Baso % (Auto) 0.7 (0.2-1.2) % Lymph # (Auto) 2.75 (0.9-3.2) K/mm3 [place] # (Auto) 0.6 (0.1-0.6) K/mm3 Eos # (Auto) 0.2 (0-0.3) K/mm3 Baso # (Auto) 0.1 (0.0-0.1) K/mm3 Abs Immat Gran (auto) 0.03 (0.00-0.031) K/mm3 Absolute Neuts (auto) 5.6 (1.3-6.7) K/mm3 Absolute Nucleated RBC 0.000 (0.0-0.012) K/mm3 Nucleated RBC % 0.0 (0.0-0.2) % PT 13.5 (11.1-14.7) Seconds INR 1.0 APTT 28.6 (22.3-36.8) Seconds Sodium 134 L (137-145) mmol/L Potassium 4.2 (3.4-5.0) mmol/L Chloride 97 L (98-107) mmol/L Carbon Dioxide 23 (22-30) mmol/L Anion Gap 14 H (4-12) mmol/L BUN 19 (9-20) mg/dL Creatinine 0.74 0.80 (0.7-1.3) mg/dL Estim Creat Clear Calc 141 131 ml/min Estimated GFR > 60 > 60 (59 - ) Glucose 338 H (65-110) mg/dL POC Capillary Glucose 345 H (65-105) mg/dl Calcium 9.6 (8.4-10.2) mg/dL Total Bilirubin 1.1 (0.2-1.3) mg/dL AST 95 H (17-59) U/L ALT 114 H (6-50) U/L Alkaline Phosphatase 123 (38-126) U/L Troponin I < 0.012 (0.000-0.034) ng/mL Total Protein 8.0 (6.3-8.2) g/dL Albumin 4.8 (3.5-5.1) g/dL <Eli Wilson MD - Last Filed: 10/18/24 11:26> Imaging Data Attestation: I personally reviewed and interpreted this imaging study as follows: < Saige Cary APRN - Last Filed: 10/17/24 18:35> Radiologist's impression: Impressions Head/Neck CTA 10/17/24 15:45 IMPRESSION: 1. Normal CTA head and neck. Percent stenosis per NASCET criteria is 0%. <Saige Cary APRN - Last Filed: 10/17/24 18:35> Discharge Plan Discharge Clinical Impression: Headache, Migraine, Hyperglycemia <Saige Cary APRN - Last Filed: 10/17/24 18:35> Patient Disposition: Home <Saige Cary APRN - Last Filed: 10/17/24 18:35> Condition: Stable <Saige Cary APRN - Last Filed: 10/17/24 18:35> Instructions: Antibiotic Form, Migraine Headache (ED), Diabetic Hyperglycemia (ED) <Saige Cary APRN - Last Filed: 10/17/24 18:35> Additional Instructions: Please return to the ER with any worsening symptoms. Follow-up with primary care provider as soon as possible. Take all regularly scheduled medications. <Saige Cary APRN - Last Filed: 10/17/24 18:35> Patient Language: Kiswahili <Saige Cary APRN - Last Filed: 10/17/24 18:35> Prescriptions: No Action omeprazole 40 mg capsule,delayed release(DR/EC) 40 mg PO DAILY metformin 500 mg tablet 500 mg PO BID atorvastatin 10 mg tablet 10 mg PO DAILY aspirin [Adult Low Dose Aspirin] 81 mg tablet,delayed release (DR/EC) 81 mg PO DAILY Ozempic 0.25 mg or 0.5 mg(2 mg/1.5 mL) pen injector 0.25 mg subcut WEEKLY Rx Instructions: for 4 doses <Saige Cary APRN - Last Filed: 10/17/24 18:35> Follow-up/Referrals: Rich,MD Jaime [Primary Care Provider] - <Saige Cary APRN - Last Filed: 10/17/24 18:35> Stand Alone Forms: Work/School Release IP <Saige Cary APRN - Last Filed: 10/17/24 18:35> Time of Disposition: 18:35 <Saige Cary APRN - Last Filed: 10/17/24 18:35> 18:35 <Eli Wilson MD - Last Filed: 10/18/24 11:26>
[2024-10-17 15:38] LABS: Estimated CRCL calculation 131 ml/min; Estimated Glomerular Filt Rate > 60
[2024-10-17 15:44] LABS: Basophils Absolute Auto 0.1 K/mm3 (0.0-0.1); Basophils Percent Auto 0.7 % (0.2-1.2); Eosinophils Absolute Auto 0.2 K/mm3 (0-0.3); Eosinophils Percent Auto 1.7 % (0-4.4); Hematocrit 49.6 % (42.0-52.0); Hemoglobin 16.4 g/dL (14.0-18.0); Immature Granulocyte Absolute 0.03 K/mm3 (0.00-0.031); Immature Granulocyte Percent A 0.3 % (0-0.5); Lymphocytes Absolute Auto 2.75 K/mm3 (0.9-3.2); Mean Corpuscular HGB Conc 33.1 g/dl (32-36); Mean Corpuscular Hemoglobin 28.5 pg (26-34); Mean Corpuscular Volume 86.1 fl (80-100); Mean Platelet Volume 10.8 fl (7.4-10.4); Monocytes Absolute Auto 0.6 K/mm3 (0.1-0.6); Neutrophils Absolute Auto 5.6 K/mm3 (1.3-6.7); Neutrophils Percent Auto 61.3 % (45.5-73.1); Platelet Count Result 245 k/mm3 (150-375); Red Blood Count 5.76 M/mm3 (4.6-6.20); Red Cell Distribution Width 13.3 % (11.5-14.5); White Blood Count 9.2 K/mm3 (4.5-10.0)
[2024-10-17 15:57] LABS: Alanine Aminotransferase 114 U/L (6-50); Albumin Level 4.8 g/dL (3.5-5.1); Alkaline Phosphatase 123 U/L (38-126); Anion Gap 14 mmol/L (4-12); Aspartate Amino Transferase 95 U/L (17-59); Bilirubin,Total 1.1 mg/dL (0.2-1.3); Blood Urea Nitrogen 19 mg/dL (9-20); Calcium 9.6 mg/dL (8.4-10.2); Carbon Dioxide 23 mmol/L (22-30); Chloride 97 mmol/L (98-107); Estimated CRCL calculation 141 ml/min; Estimated Glomerular Filt Rate > 60; Glucose 338 mg/dL (65-110); Potassium 4.2 mmol/L (3.4-5.0); Sodium 134 mmol/L (137-145)
[2024-10-17 15:58] LABS: Glucose Point of Care 345 mg/dl (65-105)
[2024-10-17 16:00] LABS: Partial Thromboplastin Time 28.6 Seconds (22.3-36.8); Prothrombin Time 13.5 Seconds (11.1-14.7)
[2024-10-17 16:02] LABS: Troponin I < 0.012 ng/mL (0.000-0.034)
--- OUTSIDE RECORDS SUMMARY | 2024-10-17 16:12 | XMS_ITS | Clinical Summary ---
Author Organization [facility] [place] [address] Address [address] [place] [address] Care Team Providers Care Senior Economist Name Role Phone Jaime Villanueva MD Primary Care Provider + [phone] Allergies Active Allergy Reactions Criticality Noted Date Comments Sulfa (Sulfonamide Antibiotics) Rash Medium 09/08 Medications aspirin 81 mg tablet Take 81 mg by mouth daily. Active nebivolol (BYSTOLIC) 5 mg tablet Take 5 mg by mouth daily. Active montelukast (SINGULAIR) 10 mg tablet Take 10 mg by mouth nightly. Active omeprazole (PriLOSEC) 40 mg capsule Take 40 mg by mouth daily. Active diclofenac DR (VOLTAREN) 75 mg EC tablet Take 75 mg by mouth 2 (two) times a day Active atorvastatin (LIPITOR) 20 mg tabletIndications:M ixed hyperlipidemia Take 1 tablet by mouth once daily 90 tablet 3 0 Active amLODIPine (NORVASC) 10 mg tabletIndications:E ssential hypertension Take 1 tablet by mouth once daily 90 tablet 1 Active Active Problems Problem Noted Date Diagnosed Date Hyperlipidemia 01/22/2019 Other chest pain 09/19/2017 Assessment & Plan (10/31/2017 9:21 AM CDT): Stress test shows no ischemia. Continue risk factor modification for CAD. Assessment & Plan (09/19/2017 9:53 AM CDT): Multiple risk factors for coronary artery disease including hypertension, family history of CAD. Will order Lexiscan nuclear stress test to rule out ischemia. Also order an echocardiogram to assess cardiac structure and function. Essential hypertension 09/19/2017 Assessment & Plan (10/31/2017 9:21 AM CDT): Blood pressure is well controlled. Continue current treatment Assessment & Plan (09/19/2017 9:53 AM CDT): Blood pressure is elevated. Increase Norvasc from 5 to 10 mg p.o. daily Morbid obesity with BMI of 40.0-44.9, adult 09/08 Assessment & Plan (10/31/2017 9:20 AM CDT): Advised about diet modification and regular exercise to help him lose weight.. Assessment & Plan (09/19/2017 9:54 AM CDT): Advised patient about diet modification however I will let him hold off exercise until we do the stress test and rule out ischemia. Surgical History Surgery Date Site/Laterality Comments CHOLECYSTECTOMY CARPAL TUNNEL RELEASE Bilateral Medical History Medical History Date Comments Hypertension Hyperlipidemia Gallstones Sleep apnea Family History Medical History Relation Name Comments Heart attack Brother Kidney failure Mother Heart attack Sister Relation Name Status Comments Brother (Age 60s) Father (Age 94) old age Mother (Age 83) Sister (Age 60s) Social History Tobacco Use Types Packs/Day Years Used Date Smoking Tobacco: Former Cigarettes Q uit: 09/19/2012 Smokeless Tobacco: Never Alcohol Use Standard Drinks/Week Comments No 0 (1 standard drink = 0.6 oz pur e alcohol) Occasional alcohol Personal Safety Answer Date Recorded Getting School Help Needed Not on file 09/24 Sex and Gender Information Value Date Recorded Sex Assigned at Not on file 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 Gender Identity Not on file Sexual Orientation Not on file Obstetrics History Last Filed Vital Signs Vital Sign Reading Time Taken Comments Blood Pressure 124/82 01/22/2019 9:50 AM CDT Pulse 79 01/21/2020 9:04 AM CDT Temperature - - Respiratory Rate 16 01/21/2020 9:04 AM CDT Oxygen Saturation 95% 01/22/2019 9:50 AM CDT Inhaled Oxygen Concentration - - Weight 137 kg (302 lb) 01/21/2020 9:04 AM CDT Height 182.9 cm (6') 01/21/2020 9:04 AM CDT Body Mass Index 40.96 01/21/2020 9:04 AM CDT Plan of Treatment Not on file Insurance [employer] [facility] Care Teams Senior Economist Relationship Specialty Start Date End Date Jaime Villanueva MD PCP - General Internal Medicine 09/19/17
--- OUTSIDE RECORDS SUMMARY | 2024-10-17 16:13 | XMS_ITS | Referral Summary ---
Author Organization [facility] [place] [address] Address [address] [place] [address] Care Team Providers Care Coordinator Mining Products Name Role Phone Jaime Villanueva MD Primary Care Provider + [phone] Allergies Active Allergy Reactions Criticality Noted Date [...] the stress test and rule out ischemia. 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
--- OUTSIDE RECORDS SUMMARY | 2024-10-17 16:13 | XMS_ITS | CONTINUITY OF CARE DOCUMENT ---
Author Name valentino avelar Address Unknown Organization [facility] Address [address] [address] [place] [address] Phone [phone] Care Team Providers Care Spanish Professor Name Role Phone Jackson Young MD Unavailable DANNIELLE MAYERS DO Unavailable PROBLEMS Condition Status Date Provider Notes Mitral insufficiency, mild active Jackson gonzalez MD LVH and lae active Jackson Young MD Hypertriglyceridemia active Jackson Ohara Hypothyroidism active Jackson Young MD Microalbuminuria active Jackson Young MD Screening active Jackson Young MD Hyperlipidemia; with high crp active Jackson Young MD Diabetes mellitus, type 2 active Yaz Cha chendick WIRE STRAIGHTENER Obesity active Yaz Chachenal WIRE STRAIGHTENER Exposure to COVID-19 coronavirus;had vaccine AND NEG SWAB active Jackson Young MD Fatty liver active Yaz Santiago NP Chest pain, atypical active Jackson Ohara Shortness of breath completed - Jackson Young MD FAMILY HISTORY OF HEART DISEASE active Lee Young MD dad cad Tobacco use, quit active Jackson Young MD VICKIE active Yaz Santiago WIRE STRAIGHTENER GERD (gastroesophageal reflu x disease) active Yaz Santiago WIRE STRAIGHTENER Hypertension active Yaz Santiaog WIRE STRAIGHTENER ENCOUNTERS Date Type Provider Location Encounter Diag nosis - In-person encounter Office Visit Jackson Young MD [place] [facility] ScreeningShortness of breathFAMILY HISTORY OF HEART DISEASETobacco use, quit - In-person encounter Office Visit Jackson Young MD [place] [facility] ScreeningHyperlipidemia; with high crpDiabetes mellitus, type 2ObesityExposure to COVID-19 coronavirus;had vaccine AND NEG SWABHypertensionGERD (gastroesophageal reflux disease)OSAFatty liverChest pain, atypical VITAL SIGNS Date Observation Value Provider Body Mass Index (Ratio) 42.61 kg/m2 Lee Young MD blood pressure, cuff size regular Cy jose mariajake Bartolome blood pressure, diastolic 90 mm[Hg] Cy andreidilshad Bartolome blood pressure, systolic 144 mm[Hg] Jasmyne blessing Bartolome oxygen saturation, oximetry 97 % Vanessa Mancuso respiratory rate E&M 16 /min Vanessa Mancuso pulse rate 79 /min Vanessa Cruz mervin weight E&M 323 [lb_av] Vanessa Cruz l height E&M 73 [in_i] Vanessa Cruz l Body Mass Index (Ratio) 42.61 kg/m2 Lee Young MD blood pressure, resting Yes Javon ty Chandrika blood pressure, cuff size regular Kr ismeaghan Masby blood pressure, diastolic 87 mm[Hg] Kr isty Chandrika blood pressure, systolic 128 mm[Hg] Kri sty Chandrika pulse rate 69 /min Sheba Chandrika oxygen saturation, oximetry 98 % Sheba Chandrika respiratory rate E&M 19 /min Sheba Beyer weight E&M 323 [lb_av] Sheba Chandrika height E&M 73 [in_i] Sheba Cobos ALLERGIES Allergy Name Onset Date Reaction Criticality Status SULFA Low Criticality active RESULTS Date Observation Value Provider Reference Range Interpretation Location 0 D-dimer quantitative mcg/mL <0.20 mg/L FEU [facility] 0.00-0.49 0 microalbumin/creatin ine ratio, urine 62 MG/G CREAT [facility] 0-29 High 0 microalbumin, random, urine 14.51 mg/dL [facility] Units converted. See lab report for original value. 0 creatinine, random, urine 235.1 mg/dL [facility] Not Estab. 0 ferritin, serum 422 ng/mL [facility] 30-400 High 0 B-12, serum 832 pg/mL [facility] 232-1245 0 pro brain natriuretic peptide 23 pg/mL [facility] 0-121 0 c-reactive protein, quantitative, serum 4.33 mg/L [facility] 0.00-3.00 High 0 iron saturation percent, serum 19 % [facility] 15-55 0 iron, serum 83 ug/dL [facility] 38-169 0 iron binding capacity, unsaturated 349 ug/dL [facility] 111-343 High 0 iron binding capacity, total 432 ug/dL [facility] 884-543 9648/07/3 0 free thyroxine index 1.6 [facility] 1.2-4.9 0 triiodothyronine resin uptake 24 % [facility] 24-39 0 thyroxine, serum, total 6.6 ug/dL [facility] 4.5-12.0 0 thyroid stimulating hormone, serum 4.810 u[IU]/mL [facility] 0.450-4.500 High 0 lipoprotein, beta, serum, point, quantitative, calculated 69 mg/dL [facility] 0-99 0 HDL cholesterol, serum 34 mg/dL [facility] >39 Low 0 triglyceride, serum, random 221 mg/dL [facility] 0-149 High 0 cholesterol, serum 140 mg/dL [facility] 045-703 5688/07/3 0 basophil count, absolute 0.1 x10E3/uL [facility] 0.0-0.2 0 Eosinophil Absolute Count 0.2 X10E3/UL [facility] 0.0-0.4 0 monocyte count, blood, automated 0.4 X10E3/UL [facility] 0.1-0.9 0 lymphocyte count, blood, automated 2.8 X10E3/UL [facility] 0.7-3.1 0 Absolute Neutrophils 3.9 X10E3/UL [facility] 1.4-7.0 0 basophils as percent of blood leukocytes 1 % [facility] Not Estab. 0 eosinophils as percent of blood leukocytes 3 % [facility] Not Estab. 0 monocytes as percent of blood leukocytes 6 % [facility] Not Estab. 0 lymphocytes as percent of blood leukocytes 37 % [facility] Not Estab. 0 neutrophils as percent of blood leukocytes 53 % [facility] Not Estab. 0 platelet count 276 X10E3/UL [facility] 630-114 5643/07/3 0 red blood cell distribution width 13.1 % [facility] 11.6-15.4 0 mean corpuscular hemoglobin concentration, RBC 32.6 G/DL [facility] 31.5-35.7 0 mean corpuscular hemoglobin, RBC 28.5 pg [facility] 26.6-33.0 0 mean corpuscular volume, RBC 88 fL [facility] 79-97 0 hematocrit, blood 47.0 % [facility] 37.5-51.0 0 hemoglobin, blood 15.3 g/dL [facility] 13.0-17.7 0 erythrocyte (RBC) count 5.36 X10E6/UL [facility] 4.14-5.80 0 leukocyte count, blood 7.4 X10E3/UL [facility] 3.4-10.8 0 alanine aminotransferase (SGPT), serum 169 1/L [facility] 0-44 High 0 aspartate aminotransferase (SGOT), serum 126 1/L [facility] 0-40 High 0 alkaline phosphatase, serum 110 1/L [facility] 48-121 0 bilirubin, serum, total 0.7 mg/dL [facility] 0.0-1.2 0 albumin/globulin ratio, serum 1.6 [facility] 1.2-2.2 0 globulin, serum 3.0 [facility] 1.5-4.5 0 albumin, serum 4.8 g/dL [facility] 3.8-4.9 0 protein, total, serum 7.8 g/dL [facility] 6.0-8.5 0 calcium, serum 10.1 mg/dL [facility] 8.7-10.2 0 carbon dioxide, venous blood 23 mmol/L [facility] 20-29 0 chloride, serum 103 mmol/L [facility] 96-106 0 potassium, serum 4.5 mmol/L [facility] 3.5-5.2 0 sodium, serum 141 mmol/L [facility] 758-733 6684/07/3 0 urea nitrogen/creatinine ratio, serum 29 [facility] 9-20 High 0 eGFR if 115 mL/min/{1 .73_m2} [facility] >59 0 eGFR if not 100 mL/min/{1 .73_m2} [facility] >59 0 creatinine, serum 0.83 mg/dL [facility] 0.76-1.27 0 urea nitrogen, blood 24 mg/dL [facility] 6-24 0 blood glucose, random 133 mg/dL [facility] 65-99 High HISTORY OF MEDICATION USE Medication Status Instructions Dates Provider Indications Com ments atorvastatin 20 mg tablet active TAKE 1 TABLET BY MOUTH ONCE DAILY IN THE EVENING Manuela Onur Jardiance 10 mg tablet active Take 1 tablet by mouth once a day Take 1 tablet by mouth once daily Lea Swan Jardiance 10 mg tablet completed Take 1 tablet by mouth once daily - Lea Swan Ozempic 0.25 mg or 0.5 mg(2 mg/1.5 mL) pen injector completed Inject 1/4 mg subcutaneously once a week Take 0.25mg once a week x4 weeks then increase to 0.5mg weekly - [facility] mg tablet completed Take 1 tablet by mouth at bedtime TAKE 1 TABLET BY MOUTH EVERY EVENING - [facility] levothyroxine 25 mcg tablet active Take 1 tablet by mouth once a day [facility] Altace 1.25 mg capsule completed Take 1 capsule by mouth every morning - [facility] aspirin 81 mg tablet,delayed release (DR/EC) active Take 1 tablet by mouth once a day Yaz Santiago NP Vascepa 1 gram capsule completed Take 2 capsule by mouth twice a day - Jackson Young MD Jardiance 10 mg tablet completed Take 1 tablet by mouth once a day - [facility] montelukast 10 mg tablet active TAKE 1 TABLET BY MOUTH ONCE DAILY Sheba Cobos Bystolic 5 mg tablet active TAKE 1 TABLET BY MOUTH ONCE DAILY Sheba Cobos diclofenac sodium 75 mg tablet,delayed release (DR/EC) completed - Sheba Cobos ID NOW COVID-19 Test Kit kit active DIRECTED Sheba Cobos amlodipine 10 mg tablet active TAKE 1 TABLET BY MOUTH ONCE DAILY Sheba Cobos atorvastatin 20 mg tablet completed TAKE 1 TABLET BY MOUTH ONCE DAILY - Sheba Cobos omeprazole 40 mg capsule,delayed release(DR/EC) active TAKE 1 CAPSULE BY MOUTH ONCE DAILY Sheba Cobos metformin 500 mg tablet active 1 tablet by mouth twice a day Sheba Cobos SOCIAL HISTORY Date Observation Value Provider quit smoking, stage quit Jackson rosas MD social history E&M S moking History: Shirin pang is a former smoker. Jackson Young MD social history reviewed E&M luis ewed - no changes required Jackson Young MD smoking, year quit 2012 Vanessa Jennie marie number of years as a smoker 30 a Vanessa Bartolome smoking history, tot al pack/day 3-4 pk qd Vanessa Mancuso cigarette use yes Vanessa Castellanoalexandru ll smoking status Former smoker Vanessa jeffrey number of grandchildren Jackson Santiago WIRE STRAIGHTENER quit smoking, stage quit Yaz marcano WIRE STRAIGHTENER smoking history, tot al pack/day 3-4 pk qd Sheba Masby number of years as a smoker 30 a Sheba Masby smoking, year quit 2012 Sheba Bu sby cigarette use yes Sheba Beyer smoking status Former smoker Sheba Masby INSURANCE PROVIDERS Payer name Policy type / Coverage type [place] red republican ID [id number] OPEN ACCESS Other [id number] [employer] Name Date DISCUSSED - NO DECISION MADE TREATMENT PLAN Date Name Performer [id number],S,suggeste rosalie Young MD [id number],S,T he patient is between 55-77 years old and has smoked at least 30 pack years. The patient is either a current smoker or has quit within the past 15 years. T he patient is recommended to have low dose CT scan for lung cancer screening. Has been counseled regarding the importance of tobacco cessation and abstinence. Shared decision making during this office visit included discussion of the benefits and harms of screening, possible future recommendations of follow-up diagnostic testing, and total amount of radiation exposure. The patient was recommended to have annual low dose CT scan for lung cancer screening and is willing to undergo diagnosis and treatment. Jackson Young MD [id number],S, H is updated medication list for this problem includes: Altace 1.25 Mg Capsule (Ramipril) ..... Take 1 capsule by mouth every morning Aspirin 81 Mg Tablet,delayed Release (dr/ec) (Aspirin) ..... Take 1 tablet by mouth once a day Bystolic 5 Mg Tablet (Nebivolol) ..... Take 1 tablet by mouth once daily Amlodipine 10 Mg Tablet (Amlodipine) ..... Take 1 tablet by mouth once daily BP today: 144/90 P rior BP: 128/87 (02/05/2021) Labs Reviewed: C reat: 0.83 (02/06/2021) C hol: 140 (02/06/2021) HDL: 34 (02/06/2021) Jackson Young MD [id number],S, Jackson yung MD [id number],S, Jackson yung MD [id number],S, Jackson yung MD [id number],C,pro 23 Jackson Young MD [id number],S, N ew diagnosis A 1c 7.7 start jardiance and ACEi Jackson Young MD [id number],S, C ompliant with CPAP Jackson Young MD [id number],S, 6 2 Jackson Young MD [id number],S,n eg anand and neg hoilkter n eg dd and vit d and and b12, and iron Jackson Young MD [id number],S, Jackson yung MD [id number],S, n eg trop and NEG NUC twice Jackson Young MD [id number],S, Jackson yung MD [id number],C,neg trop and NEG NUC Jackson Young MD [id number],C,neg trop Lee Young MD [id number],C,62 Jackson singh MD [id number],C,n eg dd and vit d and fretignn and b12, pro 23 Jackson Young MD [id number],S,Compliant wit h CPAP Yaz Starlaluiztn CHANNING [id number],S, B P today: 128/87 Yaz Starlaluiztn CHANNING [id number],S,L DL 67, trig 168 s tart vascepa [facility] CHANNING [id number],S,N ew diagnosis A 1c 7.7 start jardiance and ACEi [facility] [place] [id number],N,N ew onset, echo, CXR, PFT, stress test, lab work, Leg swelling: venous duplex, ANAND Yaz Starlajason SNELL [id number],N,n egative stress 2018 and normal echo 2018 stress test, echo [place] Valentíntn WIRE STRAIGHTENER Cardiology follow up :suggeste s leave Jackson Young MD Cardiology follow up :The patient is between 55-77 years old and has smoked at least 30 pack years. The patient is either a current smoker or has quit within the past 15 years. T he patient is recommended to have low dose CT scan for lung cancer screening. Has been counseled regarding the importance of tobacco cessation and abstinence. Shared decision making during this office visit included discussion of the benefits and harms of screening, possible future recommendations of follow-up diagnostic testing, and total amount of radiation exposure. The patient was recommended to have annual low dose CT scan for lung cancer screening and is willing to undergo diagnosis and treatment. Jackson Young MD Cardiology follow up : H is updated medication list for this problem includes: Altace 1.25 Mg Capsule (Ramipril) ..... Take 1 capsule by mouth every morning Aspirin 81 Mg Tablet,delayed Release (dr/ec) (Aspirin) ..... Take 1 tablet by mouth once a day Bystolic 5 Mg Tablet (Nebivolol) ..... Take 1 tablet by mouth once daily Amlodipine 10 Mg Tablet (Amlodipine) ..... Take 1 tablet by mouth once daily BP today: 144/90 P rior BP: 128/87 (02/05/2021) Labs Reviewed: C reat: 0.83 (02/06/2021) C hol: 140 (02/06/2021) HDL: 34 (02/06/2021) Jackson Young MD Cardiology follow up Jackson austin MD Cardiology follow up Jackson austin MD Cardiology follow up Jackson austin MD Cardiology follow up :pro 23 Vikash Young MD Cardiology follow up : N ew diagnosis A 1c 7.7 start jardiance and ACEi Jackson Young MD Cardiology follow up : C ompliant with CPAP Jackson Young MD Cardiology follow up : 6 2 Jackson Young MD Cardiology follow up :neg anand and neg hoilkter n eg dd and vit d and and b12, and iron Jackson Young MD Cardiology follow up Jackson austin MD Cardiology follow up : n eg trop and NEG NUC twice Jackson Young MD Cardiology follow up Jackson austin MD :neg trop and NEG NUC Jackson singh MD :neg trop Jackson Young MD :62 Jackson Young MD :neg dd and vit d and fretignn a nd b12, pro 23 Jackson Young MD Cardiology:Compliant with CPAP A andrea Santiago NP Cardiology: B P today: 128/87 Yaz Santiago WIRE STRAIGHTENER Cardiology:LDL 67, t rig 168 s tart vascepa Yaz Santiago WIRE STRAIGHTENER Cardiology:New diagn osis A 1c 7.7 start jardiance and ACEi Yaz Santiago WIRE STRAIGHTENER Cardiology:New onset , echo, CXR, PFT, stress test, lab work, Leg swelling: venous duplex, ANAND Yaz Santiago WIRE STRAIGHTENER Cardiology:negative stress 2018 and normal echo 2018 stress test, echo Yaz Santiago NP Date Name Complete Echo DLCO - 55052 FRC - 01732 FVC - 92071 CT, Coronary Calcium Score Renal Artery Duplex TROPONIN T Venous Doppler Bilat eral LE - Reflux Arterial Duplex Bi-L ower EX Microalb/Creatinine Urine, Random Stress Regadenoson Holter Monitor 24 Hr TSH, free T4, total T3 D-DIMER, QUANTITATIV E TROPONIN I IRON AND TOTAL IRON BINDING CAPACITY FERRITIN VITAMIN B12 Vitamin D, 25-Hydrox y Complete Echo DLCO - 75676 FRC - 66305 FVC - 90707 PROBNP, N TERMINAL COMPREHENSIVE METABO LIC PANEL, W/EGFR CBC (INCLUDES DIFF/P LT) C-REACTIVE PROTEIN LIPID PANEL HISTORY OF PROCEDURES Procedure Date Procedure Name Provider Procedure Notes S tatus EKG Jackson Young MD complete d
--- OUTSIDE RECORDS SUMMARY | 2024-10-17 16:13 | XMS_ITS | Data Portability ---
Author Organization [place] - [facility] [employer], Main Office Address [address] [place] [address] Assessment Encounter Date Assessment Date Assessment LastModified by Organization Details LastModified Time 11/30/2022 11/30/2022 Wellness blood work immunizations screenings discussed ordered were appropriate and patient agreeable Ibuprofen 800 b.i.d. p.r.n. pain use sparingly take with food Blood work for his multiple medical problems discussed Weight loss highly recommended Follow-up 4 months Albuterol inhaler p.r.n. [email or web address] Not available 11/30/2022 22:28:03 12/23/2022 12/23/2022 Longstanding smoking history EKG shows a normal sinus rhythm with no acute changes normal intervals will check CBC CMP BNP chest x-ray prednisone 40 mg daily x5 days doxycycline 100 b.i.d. times 10 days Breztri inhaler 2 puffs b.i.d. see me back this coming Tuesday [email or web address] Not available 12/23/2022 21:19:18 12/28/2022 12/28/2022 No hypoxia in the office will have a slow prednisone taper chest x-ray looks fine PFTs will be ordered see me back in a couple weeks blood work reviewed [email or web address] Not available 12/28/2022 22:50:09 02/15/2023 02/15/2023 Stop the amlodipine start losartan 100/25 keep regular appointment [email or web address] Not available 02/27/2023 18:00:54 03/22/2023 03/22/2023 See me back in about 6 weeks he will restart Ozempic hopefully weekends get some weight off as they are contemplating knee replacement [email or web address] Not available 03/22/2023 21:15:02 Plan of Treatment Reminders Order Date Submit Date Provider Last Modified By Organization Details Last Modified Time Details Appointments None recorded. Lab CBC w/ auto diff 2022 023 [facility], [address] [place] [address], [facility] 2, [place], [address], 3 12:14:13 CMP, serum or plasma 2022 023 [facility], [address] [place] [address], [facility] 2, [place], [address], 3 12:14:13 BNP (B-type natriuretic peptide), serum or plasma 2022 023 [facility], [address] [place] [address] 2, [place], [address], 3 12:42:38 PSA, total, serum or plasma 2022 023 [facility], [address] [place] [address], [facility] 2, [place], [address], 3 12:14:13 HbA1c (hemoglobin A1c), blood 2022 023 [facility], [address] [place] [address], [facility] 2, [place], [address], 3 12:42:38 albumin/cre atinine, mass ratio, urine 2022 023 [facility], [address] [place] [address] 2, [place], [address], 3 12:14:13 lipid panel, serum 2022 023 [facility], [address] [place] [address] 2, [place], [address], 3 12:42:38 CMP, serum or plasma 2022 023 cyahl [facility], [address] [place] [address], [facility] 2, [place], [address], 3 12:42:56 CBC w/ auto diff 2022 023 cyl [facility], [address] [place] [address], [place], [address], 3 12:43:01 TSH + free T4, serum 2022 023 [facility], [address] [place] [address], [place], [address], 3 12:42:37 T3, free, serum or plasma 2022 023 [facility], [address] [place] [address], [place], [address], 3 12:42:38 testosteron e, free + total, serum 2022 023 [facility], [address] [place] [address], [place], [address], 3 12:42:38 Referral None recorded. Procedures None recorded. Surgeries None recorded. Imaging XR, chest 2022 023 [facility] (Im[facility]), [address] [place] [address] [address], [place], [address], 3 17:54:55 Medication Orders losartan 100 mg-hydrochl orothiazide 25 mg tablet 2022 023 [email or web address] [facility], [address], [place], [address], 3 18:00:22 prednisone 20 mg tablet [address] [facility], [address], [place], [address], 3 14:37:23 prednisone 10 mg tablet [address], [address], [place], [place], [address], 3 14:37:20 prednisone 20 mg tablet [address], [address], [place], [address], 3 14:37:23 doxycycline hyclate 100 mg capsule [address], [address], [place], [place], [address], 3 14:37:00 Breztri Aerosphere 160 mcg-9mcg-4. 8mcg/actuat ion HFA aerosol inhaler [address], [address], [place], [place], [address], 3 17:38:02 ibuprofen 800 mg tablet [address], [address], [place], [address], 3 14:37:11 albuterol sulfate HFA 90 mcg/actuati on aerosol inhaler [address], [address], [place], [address], 3 17:45:59 Patient TargetsNo targets recorded. Patient Instructions Encounter Date Encounter Id Patient Instructions Last Modified By Organization Details Last Modified Time 11/30/2022 [id number] risk assessment* [place] [address] Not availabl e 11/30/2022 17:45:59 INFLUENZA VACCIN E TD/TDAP Recommended today, patient declined Ordered Patient will get at local pharmacy/health department PNEUMONIA VACCINE Ordered Recommend ed today, patient declined Patient will get at local pharmacy/health department Recomm ended at age 66 SHINGLES PSA COLORECTAL SCREENING DEPRESSION SCREENING Negative BMI Overweight continue your current weight loss efforts try to lose 5% of your body weight try to lose 10% of your body weight NUTRITION PHYSICAL ACTIVITY Need more exercise/physical activity ALCOHOL USE No alcohol use Occasional/So cial Use TOBACCO USE non smoker LUNG CANCER SCREENING Non Smoker-not indicated SEXUALLY ACTIVE HEPATITIS C SCREENING Not indicated GLUCOSE SCREENING LIPID SCREENING [email or web address] Not available 11/30/2022 15:03:11 12/28/2022 [id number] complete PFT* [email or web address] Not available 1 07/29/2022 09:26:08 Reason for Referral None Reported. Results Created Date Observation Date Name Description Value Unit Range Abnormal Flag Note LastModifiedBy Organization Detail LastModifiedTime 12/24/1912/23/2022 XR, chest No observ ation record ed. [address], [address], 12/28/2022 14:18:34 01/21/20 23 12/23/2022 elect amadoreliseo deny am No observ ation record ed. BARCODE Not Available 2022 12:58:57 02/03/20 23 02/02/2023 XR, chest No observ ation record ed. [address], [address], 02/16/2023 12:47:41 02/03/20 23 02/02/2023 CT, brain , w/o contr ast No observ ation record ed. [address], [address], 02/18/2023 14:12:51 02/03/2002/02/2023 US, doppl er, venou s No observ ation record ed. [address], [address], 02/18/2023 14:13:29 03/03/20 23 03/01/2023 XR, knee, 4 or more view No observ ation record ed. [address] [place], [address], 03/23/2023 21:10:03 07/18/19 24 07/18/2023 XR, chest No observ ation record ed. [address], [place], [address], 07/19/2023 16:08:28 07/19/19 24 07/18/2023 XR, chest No observ ation record ed. [address], [place], [address], 07/19/2023 16:08:29 Result Notes None recorded. Problems Name Problem SNOMED Code Status Onset Date Resolution Date Notes Provider Name and Address Organization Details Recorded Time Diabetes mellitus without complicat ion 895417177 Active 2022 Yimi Cortes RMJessica sharma, [place] - [facility] 3 15:28:11 Fatigue 36502266 Active 2022 Yimi Cortes RMJessica null, [place] - [facility] 3 15:28:55 Wheezing 65018451 Active 2022 TOMÁS Callejas null, [place] - [facility] 3 15:49:16 Pain of left knee joint 89120629089 4107 Active 2022 Yimi Cortes RMA edith, [place] - [facility] 3 16:00:47 Dyspnea 923815290 Active 2022 Yimi Cortes RMJessica null, [place] - [facility] 3 16:46:41 Eruption 721881070 Active 2022 Kelli Hurley null[place] [facility] 3 19:08:02 COVID-19 294867943 Active 2023 Ayleen Hickman RN null, [place] - [facility] 4 17:15:35 Pain in upper limb 167117036 Completed Not Available [facility] 3 04:45:50 Rectal hemorrhag e 47917081 Active 2021 Not Available [facility] 3 04:45:50 Acute sinusitis 13548187 Active 2021 Not Available [facility] 3 04:45:50 Abdominal pain 77225363 Completed Not Available [facility] 3 04:45:50 Pain 56583755 Completed Not Available [facility] 3 04:45:50 Gastroeso phageal reflux disease 002240904 Active Not Available [facility] 3 04:45:50 Overweigh t 360941483 Active Not Available [facility] 3 04:45:50 Headache 01646996 Completed Not Available [facility] 3 04:45:50 Infection of sebaceous cyst 823227929 Completed Not Available [facility] 3 04:45:50 Infection of toe 376526888 Completed Not Available [facility] 3 04:45:50 Current tear of medial cartilage AND/OR meniscus of knee Active Not Available [facility] 3 04:45:50 Type 2 diabetes mellitus without complicat ion 706856977 Active 2021 Not Available [facility] 3 04:45:50 Pain in right foot 70850679268 9107 Completed Not Available [facility] 3 04:45:50 Dyslipide yolette 921351313 Active 2020 Not Available [facility] 3 04:45:50 Hypertens macie disorder 84823172 Active Not Available [facility] 3 04:45:51 Osteoarth ritis 257427765 Active 2018 Not Available [facility] 3 04:45:51 Dizziness 693708837 Completed Not Available [facility] 3 04:45:51 Acute urinary tract infection 121235723 Active 2021 Not Available [facility] 3 04:45:51 Cough 24520090 Active 2022 Not Available [facility] 3 04:45:51 Acute upper respirato ry infection 34312599 Active 2021 Not Available [facility] 3 04:45:51 Carpal tunnel syndrome 20973292 Active Not Available [facility] 3 04:45:51 Essential hypertens ion 05078648 Active Not Available [facility] 3 04:45:51 Rhinitis 82794863 Completed Not Available [facility] 3 04:45:51 Celluliti s of toe 49485568 Completed Not Available [facility] 3 04:45:51 Snoring 73096942 Active Not Available [facility] 3 04:45:51 Abnormal liver function 24650883 Active Not Available [facility] 3 04:45:52 Hyperglyc emia 53995510 Active 2020 Not Available [facility] 3 04:45:52 Pain in limb 73132052 Completed Not Available [facility] 3 04:45:52 Problem Notes None recorded. Procedures Surgical History Date Name Laterality Status Provider Name and Address Organization Details Recorded Time 02/05/20 17 Carpal tunnel surgery completed Not Available [facility] 09/08/2022 04:41:31 07/11/18 90 cholecystectomy completed Not Available [facility] 09/08/2022 04:41:31 excision of trochanteric lipomatosis completed Not Available [facility] 09/08/2022 04:41:31 Imaging Results Imaging Date Name Status LastModified by Organization Details LastModified Time 12/23/2022 XR, chest completed [address], [address], 12/28/2022 14:18:34 12/23/2022 electrocardiogram completed BARCODE Informa tion not available 01/20/2023 12:58:57 02/02/2023 XR, chest completed [address], [address], 02/16/2023 12:47:41 02/02/2023 CT, brain, w/o contrast completed [address], [address], 02/18/2023 14:12:51 02/02/2023 US, doppler, venous completed [address], [address], 02/18/2023 14:13:29 03/01/2023 XR, knee, 4 or more view completed [address], [address], 03/23/2023 21:10:03 07/18/2023 XR, chest completed [address], [address], 07/19/2023 16:08:28 07/18/2023 XR, chest completed [address], [address], 07/19/2023 16:08:29 Procedure Notes None recorded. Medical Equipment None Reported. Allergies Allergen ID Allergen Name Allergen Category Reaction Reaction Severity Criticality Documentation Date Start Date Code Code System Note Provider Name and Address Organization Details Recorded Time 6966 Substance with sulfonami de structure and antibacte rial mechanism of action (substanc e) medicatio n Not available Not available Not available 09/08/2022 25723 8003 SNOMED Not Available [facility] 3 04:52:05 Medications Name Sig Start Date Stop Date Status Note LastModified by Organization Details LastModified Time amoxicilli n 500 mg capsule 03/09 completed Not Available Not Available Not Available metformin 500 mg tablet active Not Available Not Available Not Available prednisone 10 mg tablet TAKE 1 TABLET BY MOUTH ONCE DAILY FOR 7 DAYS 02/15 completed Not Available Not Available Not Available doxycyclin e hyclate 100 mg capsule TAKE 1 CAPSULE BY MOUTH TWICE DAILY WITH MEALS active Not Available Not Available No t Available atorvastat in 20 mg tablet TAKE 1 TABLET BY MOUTH ONCE DAILY IN THE EVENING active Not Available Not Available No t Available azithromyc in 250 mg tablet TAKE 2 TABLETS BY MOUTH ON DAY 1, AND THEN TAKE 1 TABLET BY MOUTH ONCE A DAY ON DAY 2 THROUGH DAY 5 11/26 completed Not Available Not Available Not Available ibuprofen 800 mg tablet Take 1 tablet by mouth twice daily as needed with food use sparingly 02/15 completed Not Available Not Available Not Available tizanidine 4 mg tablet Take 1 tablet every day by oral route as needed. active Not Available Not Available No t Available benzonatat e 200 mg capsule Take 1 capsule 3 times a day by oral route. 09/09 completed Not Available Not Available Not Available hydrocodon e 5 mg-acetami nophen 325 mg tablet 03/09 completed Not Available Not Available Not Available prednisone 20 mg tablet TAKE 1 TABLET BY MOUTH ONCE DAILY FOR 7 DAYS THEN GO TO 10 MG DAILY FOR 1 WEEK 02/15 completed Not Available Not Available Not Available penicillin V potassium 500 mg tablet active Not Available Not Available Not Available acetaminop hen 300 mg-codeine 30 mg tablet 12/27 completed Not Available Not Available Not Available amlodipine 5 mg tablet TAKE ONE TABLET BY MOUTH ONCE DAILY 03/09 completed Not Available Not Available Not Available ciprofloxa vivian 500 mg tablet Take 1 tablet every 12 hours by oral route for 7 days. 09/09 completed Not Available Not Available Not Available sulfametho xazole 800 mg-trimeth oprim 160 mg tablet 09/20 completed Not Available Not Available Not Available omeprazole 40 mg capsule,de layed release Take 1 capsule by mouth once daily active Not Available Not Available No t Available sildenafil 25 mg tablet 3 tablets 30 minutes before intercour se active Not Available Not Available No t Available aspirin 81 mg tablet,del ayed release Take 1 tablet every day by oral route. 10/19 completed Not Available Not Available Not Available amoxicilli n 500 mg tablet Take 1 tablet 3 times a day by oral route for 7 days. 03/09 completed Not Available Not Available Not Available levothyrox ine 25 mcg tablet TAKE 1 TABLET BY MOUTH ONCE DAILY active Not Available Not Available No t Available ciclopirox 8 % topical solution 02/04 completed Not Available Not Available Not Available losartan 100 mg-hydroch lorothiazi de 25 mg tablet Take 1 tablet by mouth once daily active Not Available Not Available No t Available sulfacetam rolly sodium 10 % eye drops 09/20 completed Not Available Not Available Not Available amlodipine 10 mg tablet TAKE 1 TABLET BY MOUTH ONCE DAILY 03/22 completed Too much edema Not Available Not Available Not Available cephalexin 500 mg capsule TAKE 1 CAPSULE BY MOUTH THREE TIMES DAILY 09/09 completed Not Available Not Available Not Available diclofenac sodium 75 mg tablet,del ayed release Take 1 tablet by mouth twice daily 04/27 completed Not Available Not Available Not Available montelukas t 10 mg tablet active Not Available Not Available Not Available Nasonex 50 mcg/actuat ion Wellston Wellston 2 sprays every day by intranasa l route. active Not Available Not Available No t Available ibuprofen 600 mg tablet 01/10 completed Not Available Not Available Not Available cefuroxime axetil 500 mg tablet TAKE 1 TABLET BY MOUTH EVERY 12 HOURS FOR 10 DAYS active Not Available Not Available No t Available levofloxac in 500 mg tablet Take 1 tablet every day by oral route. 11/17 completed Not Available Not Available Not Available methylpred nisolone 4 mg tablets in a dose pack TAKE BY MOUTH DIRECTED ON INSIDE OF PACKAGE 07/28 completed Not Available Not Available Not Available albuterol sulfate HFA 90 mcg/actuat ion aerosol inhaler INHALE 2 PUFFS BY MOUTH EVERY 4 HOURS active Not Available Not Available No t Available doxycyclin e hyclate 100 mg tablet TAKE 1 TABLET BY MOUTH TWICE DAILY active Not Available Not Available No t Available ramipril 1.25 mg capsule 09/17 completed Not Available Not Available Not Available multivitam in 2020 active Not Available Not Available Not Avai lable nebivolol 5 mg tablet active Not Available Not Available Not Available Suprep Bowel Prep Kit 17.5 gram-3.13 gram-1.6 gram oral solution 02/04 completed Not Available Not Available Not Available QNASL 80 mcg/actuat ion nasal aerosol spray Wellston 2 spray(s) each nostril daily 11/17 completed Not Available Not Available Not Available glucosamin e 116 mg-chondro itin 100 mg-dietary supplement #25 capsule Take by oral route. 2020 active Not Available Not Available Not Avai lable Jardiance 10 mg tablet TAKE 1 TABLET BY MOUTH ONCE DAILY active Not Available Not Available No t Available Fluzone Quad 2015-(PF ) 60 mcg(15 mcgx4)/0.5 mL intramuscu lar syringe 01/07 completed Not Available Not Available Not Available Ozempic 0.25 mg or 0.5 mg (2 mg/1.5 mL) subcutaneo us pen injector INJECT 0.25 MG SUBCUTANE OUSLY ONCE A WEEK FOR 4 WEEKS THEN INCREASE TO 0.5 MG WEEKLY THEREAFTE R 09/09 completed Not Available Not Available Not Available Flucelvax Quad (PF) 60 mcg (15 mcg x 4)/0.5 mL IM syringe active Not Available Not Available N ot Available ID NOW COVID-19 Test Kit TEST DIRECTED TODAY 11/26 completed Not Available Not Available Not Available Flucelvax Quad (PF) 60 mcg (15 mcg x 4)/0.5 mL IM syringe PHARMACIS T ADMINISTE RED IMMUNIZAT ION ADMINISTE RED AT TIME OF DISPENSIN G active Not Available Not Available No t Available Breztri Aerosphere 160 mcg-9mcg-4 .8mcg/actu ation HFA aerosol inhaler INHALE 2 PUFFS TWICE DAILY active Not Available Not Available No t Available Ozempic 1 mg/dose (4 mg/3 mL) subcutaneo us pen injector INJECT 1 MG SUBCUTANE OUSLY ONCE A WEEK 12/23 completed Not Available Not Available Not Available Paxlovid 300 mg (150 mg x 2)-100 mg tablets in a dose pack TAKE 3 TABLETS BY MOUTH TWICE DAILY FOR 5 DAYS active Not Available Not Available No t Available Ozempic 2 mg/dose (8 mg/3 mL) subcutaneo us pen injector INJECT 2 MG SUBCUTANE OUSLY ONCE A WEEK active Not Available Not Available No t Available Vitals Date Recorded Body height Body mass index (BMI) Body weight Body temperature Heart rate Systolic blood pressure Diastolic blood pressure Provider Name and Address Organization Details Last Updated DateTime 3 185.42 cm 41.7 kg/m2 006955. 19 g 97.8 [degF] 83 /min 122 mm[Hg] 84 mm[Hg] TOMÁS Cannon - [facility] [employer] [facility] 3 14:54:50 Date Recorded Body height Body mass index (BMI) Body weight Body temperature Heart rate Systolic blood pressure Diastolic blood pressure Provider Name and Address Organization Details Last Updated DateTime 3 185.42 cm 42.4 kg/m2 144524. 15 g 97.2 [degF] 81 /min 138 mm[Hg] 88 mm[Hg] TOMÁS Cannon [place] [employer] [facility] [employer] [facility] 3 15:20:28 Date Recorded Body height Body weight Body temperature Heart rate Oxygen saturation Oxygen saturation in Arterial blood by Pulse oximetry Systolic blood pressure Diastolic blood pressure Provider Name and Address Organization Details Last Updated DateTime 3 185.42 cm 712168. 74 g 98.4 [degF] 81 /min 96 % 96 % 128 mm[Hg] 80 mm[Hg] Yaz Lang RN [facility] [employer] [facility] 3 11:47:16 Date Recorded Heart rate Oxygen saturation Oxygen saturation in Arterial blood by Pulse oximetry Heart rate Oxygen saturation Oxygen saturation in Arterial blood by Pulse oximetry Provider Name and Address Organization Details Last Updated DateTime 3 79 /min 96 % 96 % 95 /min 95 % 95 % TOMÁS Cannon [facility] [employer] [facility] 3 12:30:17 Date Recorded Body height Body mass index (BMI) Body weight Body temperature Heart rate Systolic blood pressure Diastolic blood pressure Provider Name and Address Organization Details Last Updated DateTime 3 185.42 cm 43.3 kg/m2 909122. 3 g 97.5 [degF] 78 /min 122 mm[Hg] 84 mm[Hg] TOMÁS Cannon [facility] [employer] [facility] 3 14:40:06 Date Recorded Body height Body mass index (BMI) Body weight Body temperature Heart rate Systolic blood pressure Diastolic blood pressure Provider Name and Address Organization Details Last Updated DateTime 3 185.42 cm 42.2 kg/m2 963937. 56 g 97.9 [degF] 75 /min 132 mm[Hg] 86 mm[Hg] TOMÁS Cannon [facility] [employer] [facility] 3 15:53:22 Social History Question Answer Notes LastModified by Organization Details LastModified Time Tobacco Smoking Status Former Smoker quit 2012 Not Available [facility] 09/08/2022 04:12:06 Do You Have An Advance Directive? No [id number] Information not available 09/08/2022 What Is Your Level Of Alcohol Consumption? Occasional [id number].0301 [id number] Information not available 09/08/2022 Are You Blind Or Do You Have Difficulty Seeing? No MIGRATION.0301 [id number] Information not available 09/08/2022 What Is Your Level Of Caffeine Consumption? Moderate MIGRATION.0301 [id number] Information not available 09/08/2022 How Much Tobacco Do You Chew? None MIGRATION.0301 [id number] Information not available 09/08/2022 In The 14 Days Before Symptom Onset, Have You Had Close Contact With A Laboratory-confi rmed COVID-19 While That Case Was Ill? No MIGRATION.0301 [id number] Information not available 09/08/2022 In The 14 Days Before Symptom Onset, Have You Had Close Contact With A Person Who Is Under Investigation For COVID-19 While That Person Was Ill? No MIGRATION.0301 [id number] Information not available 09/08/2022 Are You Deaf Or Do You Have Serious Difficulty Hearing? No MIGRATION.0301 [id number] Information not available 09/08/2022 What Type Of Diet Are You Following? REGULAR MIGRATION.0301 [id number] Information not available 09/08/2022 Which Illicit Or Recreational Drugs Have You Used? None MIGRATION.0301 [id number] Information not available 09/08/2022 Do You Or Have You Ever Used E-cigarettes Or Vape? Never Used Electronic Cigarettes MIGRATION.0301 [id number] Information not available 09/08/2022 What Is The Highest Grade Or Level Of School You Have Completed Or The Highest Degree You Have Received? [id number] MIGRATION.0301 [id number] Information not available 09/08/2022 What Is Your Occupation? [employer]; [employer] MIGRATION.0301 [id number] Information not available 09/08/2022 Have There Been Any Changes To Your Family Or Social Situation? No MIGRATION.0301 [id number] Information not available 09/08/2022 What Is The Fluoride Status Of Your Home? Unknown MIGRATION.0301 [id number] Information not available 09/08/2022 When Did You Quit Smoking? 6-10yearssincelastc igarette MIGRATION.0301 [id number] Information not available 09/08/2022 Are There Any Guns Present In Your Home? No MIGRATION.0301 [id number] Information not available 09/08/2022 Do You Use Insect Repellent Routinely? No MIGRATION.0301 [id number] Information not available 09/08/2022 Where Do You Live? 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 No MIGRATION.0301 [id number] Information not available 09/08/2022 What Was The Date Of Your Most Recent Tobacco Screening? 03/22/2023 [email or web address] Information not available 03/22/2023 Have You Ever Been Counseled For Unhealthy Alcohol Use? No MIGRATION.0301 [id number] Information not available 09/08/2022 Do You Have Any Pets? Yes MIGRATION.0301 [id number] Information not available 09/08/2022 What Is Your Relationship Status? MIGRATION.0301 [id number] Information not available 09/08/2022 Do You Use Your Seat Belt Or Car Seat Routinely? No MIGRATION.0301 135256 Information not available 09/08/2022 Do You Have Smoke And Carbon Monoxide Detectors In Your Home? Yes MIGRATION.0301 [id number] Information not available 09/08/2022 Are You Passively Exposed To Smoke? No MIGRATION.0301 194511 Information not available 09/08/2022 Do You Or Have You Ever Used Smokeless Tobacco? Never Used Smokeless Tobacco MIGRATION.0301 083363 Information not available 09/08/2022 Are There Any Smokers In Your House? No MIGRATION.0301 488700 Information not available 09/08/2022 How Much Tobacco Do You Smoke? No MIGRATION.0301 379517 Information not available 09/08/2022 What Types Of Sporting Activities Do You Participate In? None MIGRATION.0301 998272 Information not available 09/08/2022 Do You Feel Stressed (tense, Restless, Nervous, Or Anxious, Or Unable To Sleep At Night)? [id number] MIGRATION.0301 921381 Information not available 09/08/2022 Do You Use Any Illicit Or Recreational Drugs? No MIGRATION.0301 393656 Information not available 09/08/2022 Do You Use Sunscreen Routinely? Yes MIGRATION.0301 475819 Information not available 09/08/2022 Has Tobacco Cessation Counseling Been Provided? No MIGRATION.0301 716092 Information not available 09/08/2022 Have You Recently Traveled Abroad? No MIGRATION.0301 963383 Information not available 09/08/2022 Do You Have Any Dietary Restrictions? No MIGRATION.0301 141114 Information not available 09/08/2022 Do You Or Have You Ever Used Any Other Forms Of Tobacco Or Nicotine? No MIGRATION.0301 947639 Information not available 09/08/2022 Sex: Male Functional Status Question Answer Note LastModified by Organizat ion Details LastModified Time Do you have difficulty walking or climbing stairs? No MIGRATION.671640 4427 Information not available 09/08/2022 Do you have transportation difficulties? No MIGRATION.805075 2184 Information not available 09/08/2022 Are you able to walk? [place]WOREST MIGRATION.187234 9384 Information not available 09/08/2022 Do you have difficulty doing errands alone? No MIGRATION.116210 1377 Information not available 09/08/2022 Are you able to care for yourself? Yes MIGRATION.902359 7754 Information not available 09/08/2022 Do you have difficulty dressing or bathing? No MIGRATION.780553 5442 Information not available 09/08/2022 What is your exercise level? Occasional stays active with work MIGRATION.862889 5704 Information not available 09/08/2022 Mental Status Question Answer Note LastModified by Organizat ion Details LastModified Time Do you have difficulty concentrating, remembering or making decisions? No MIGRATION.[id number] Information not available 09/08/2022 Family History Relationship Description Onset Age of this Age Resolved Age Notes LastModified by Organization Details LastModified Time Father Heart disease MIGRATION.900 [id number] Not available 09/08/2022 04:41:34 Mother Malignant tumor of breast MIGRATION.767 [id number] Not available 09/08/2022 04:41:34 Medical History Condition Response BLINDNESS N NERVE DISEASE N RHEUMATIC FEVER N BLADDER PROBLEMS N KIDNEY STONES N MRSA N OTHER # 1 N POLIO N LUNG DISEASE/DISORDER Y HISTORY OF DRUG ABUSE N RADIATION / CHEMOTHERAPY N COPD N Other # 2 N BLOOD DISEASES N SURGERY N EAR OR HEARING PROBLEMS N MUMPS N BOWEL PROBLEMS N DEPRESSION (INCLUDING POST ) N STROKE/TIA N ULCERS N BENIGN PROSTATIC HYPERPLASIA N MEASLES N HYPOTENSION N MYOCARDIAL INFARCTION N OBESITY N GERD/NAUSEA Y ANEURYSM N URINARY/BLADDER/KIDNEY PROBLEMS N CORONARY ARTERY DISEASE (CAD) N ADDICTION CONCERNS N Impotence N ENDOMETRIOSIS N USE OF BLOOD THINNERS N SKIN PROBLEMS N GASTROINTESTINAL DISORDER N PERIPHERAL VASCULAR DISEASE N MUSCLE,JOINT OR BONE PROBLEMS Y GASTROINTESTINAL BLEEDING N BLOOD CLOTS N ASTHMA N CATARACTS N ERECTILE DYSFUNCTION N VARICOSITIES N GI PROBLEMS N Low Testosterone N INFERTILITY N AIDS/HIV N CHEMOTHERAPY / RADIATION N LIVER DISEASE N MALE HYPOGONADISM N HYPERTENSION Y Deficiency N ANXIETY DISORDER N BLOOD TRANSFUSION N ANEMIA/BLOOD DISORDER N CHRONIC EAR INFECTIONS N BRONCHITIS N TUBERCULOSIS N GLAUCOMA N FOOT PROBLEM N DIVERTICULITIS N SLEEP APNEA N CHICKENPOX N INFECTIOUS DISEASE N PROSTATE N HEART ARRHYTHMIA N INSOMNIA N HIGH CHOLESTEROL / HYPERLIPIDEMIA Y HYPERTHYROIDISM N EYE PROBLEMS N NEUROLOGICAL PROBLEMS N EDEMA N CHRONIC PAIN SYNDROME N HYPOTHYROIDISM N CONSTIPATION N CAROTID BLOCKAGE N BACK / NECK PROBLEMS N HAVE YOU BEEN HOSPITALIZED OR SEEN IN [facility] IN THE PAST YEAR ? N ATHEROSCLEROSIS N BREAST PROBLEMS N DIALYSIS N ECZEMA N OSTEOPOROSIS N ARTHRITIS Y NO SIGNIFICANT PAST MEDICAL HISTORY N APPENDICITIS N DIABETES, TYPE N BAD TEETH N ENT N HEARTBURN / REFLUX Y AUTISM SPECTRUM DISORDER (ASD) N HEPATITIS / LIVER DISEASE N GOUT N SLEEP DISORDER Y ALZHEIMER'S DISEASE N Brain Problems N HERPES N DEMENTIA N SEIZURES/EPILEPSY N HEADACHES/MIGRAINES N VASCULAR DISEASE N PACEMAKER N Blood Disorder N DIZZINESS N KIDNEY DISEASE N HEART DISEASE/HEART PROBLEMS N MULTIPLE SCLEROSIS N CARDIAC ARRHYTHMIA N CANCER: SPECIFY N Gall Stones N ATRIAL FIBRILLATION N PULMONARY EMBOLISM N AUTOIMMUNE DISEASE N Immunizations Vaccine Type Date Status Note Provider Nam e and Address Organization Details Recorded Time Tdap 4 completed Not Available [facility] 09/08/2022 04:51:55 COVID-19, mRNA, LNP-S, PF, 100 mcg/0.5mL dose or 50 mcg/0.25mL dose 1 completed Not Available [facility] 09/08/2022 04:51:55 COVID-19, mRNA, LNP-S, PF, 100 mcg/0.5mL dose or 50 mcg/0.25mL dose 1 completed Not Available [facility] 09/08/2022 04:51:55 Influenza, split virus, trivalent, preservative 0 completed Not Available [facility] 09/08/2022 04:51:55 Influenza, split virus, quadrivalent, preservative 9 completed Not Available [facility] 09/08/2022 04:51:55 influenza, unspecified formulation 8 completed Not Available [facility] 09/08/2022 04:51:55 influenza, unspecified formulation 6 completed Not Available [facility] 09/08/2022 04:51:55 COVID-19, mRNA, LNP-S, PF, 30 mcg/0.3 mL dose 2 completed Not Available [facility] 09/08/2022 04:51:55 Influenza, split virus, trivalent, preservative 2 completed Not Available [facility] 09/08/2022 04:51:55 zoster recombinant 2 completed Not Available [facility] 09/08/2022 04:51:56 zoster recombinant 2 completed Not Available [facility] 09/08/2022 04:51:56 COVID-19, mRNA, LNP-S, PF, 100 mcg/0.5mL dose or 50 mcg/0.25mL dose 1 completed Not Available [facility] 09/08/2022 04:51:56 Influenza, split virus, trivalent, preservative 1 completed Not Available [facility] 09/08/2022 04:51:56 Influenza, split virus, quadrivalent, PF 7 completed Not Available [facility] 09/08/2022 04:51:56 Influenza, split virus, trivalent, PF 4 completed Not Available [facility] 09/08/2022 04:51:56 Past Encounters Encounter ID Performer Location Encounter Start Date Encounter Closed Date Diagnosis/Indication Diagnosis SNOMED-CT Code Diagnosis ICD10 Code Diagnosis Note [id number] [facility] [place] [address] 10/21/2020 00:00:00 10/21/2020 21:39:53 [id number] [facility] [address] 02/05/2021 00:00:00 02/07/2021 22:01:40 [id number] [facility] [address] 04/23/2021 00:00:00 04/23/2021 22:50:53 [id number] [facility] [place] [address] [place] [address] y , [place] [address] 06/18/2021 00:00:00 07/10/2021 14:27:29 [id number] [facility] [place] [address] [place] [address] y , [place] [address] 07/16/2021 00:00:00 07/16/2021 21:44:42 [id number] [facility] Internal [place] [address] [place] [address] y , [place] [address] 07/28/2021 00:00:00 07/28/2021 21:13:35 [id number] [facility] Internal [place] [address] [place] [address] [place] [address] 09/17/2021 00:00:00 10/11/2021 11:38:35 [id number] [facility] Internal [place] [address] [place] [address] y , [place] [address] 11/26/2021 00:00:00 12/19/2021 17:16:34 [id number] [facility] Internal [place] [address] [place] [address] [place] [address] 04/27/2022 00:00:00 04/27/2022 21:41:43 [id number] Jaime Villanueva MD [facility] Internal [place] [address] [place] [address] [place] [address] 09/09/2022 14:34:19 09/09/2022 15:30:29 Essential hypertension 39418020 I10 Diabetes m ellitus without complication 695603884 E11.9 Screening for malignant neoplasm of prostate 637275616 Z12.5 Fatigue 60327174 R53.83 Dyslipidemia 385073351 E 78.5 Osteoarthritis 546078598 M19.90 Type 2 kenneth betes mellitus without complication 621668977 E11.9 Gastroesop hageal reflux disease 540497596 K21.9 [id number] Jaime Villanueva MD [facility] Internal [place] [address] [place] [address] [place] [address] 11/30/2022 14:48:08 11/30/2022 15:44:31 Adult health examination 474370798 Z00.00 Depression screening 171 586323 Z13.31 Dyslipidemia 363657942 E 78.5 Diabetes m ellitus without complication 196253467 E11.9 Essential hypertension 34571773 I10 Fatigue 60671894 R53.83 Screening for malignant neoplasm of prostate 425070393 Z12.5 Wheezing 25601575 R06.2 Pain of le ft knee joint 8517205769 71305 M25.562 [id number] Jaime Villanueva MD [facility] [place] [facility] [place] [address] 12/23/2022 14:49:03 12/23/2022 16:51:14 Dyspnea 162683366 R06.00 [id number] Jaime Villanueva MD [facility] [place] [facility] [place] [address] 12/28/2022 11:22:34 12/28/2022 12:37:57 Dyspnea 465529214 R06.02 [id number] Jaime Villanueva MD [facility] Internal [place] [address] [place] [address] [place] [address] 02/15/2023 14:28:46 02/15/2023 15:24:30 Essential hypertension 76573858 I10 [id number] Jaime Villanueva MD [facility] Internal [facility] [place] [address] [place] [address] [place] [address] 03/22/2023 15:15:17 03/22/2023 17:30:28 Essential hypertension 58908357 I10 Health Concerns Section Related Observation LastModified by Organization Detai ls LastModified Time None Recorded Concern Status LastModified by Organization Details LastModified Time None Recorded Advance Directives Directive N: Payers Encounter Date Sequence Insurance Name Policy Number Policy Veloz Covered Member ID Veloz Member ID Guarantor Name 11/30/2022 1 [employer] - OPEN ACCESS [id number] Rosalina Ohara Gill[place] [id number] SOCatrina Ohara Gillentine 12/23/2022 1 [employer] - OPEN ACCESS [id number] Rosalina Ohara Gillentine [id number] SOCatrina Ohara [employer] 12/28/2022 1 [employer] - OPEN ACCESS [id number] Rosalina Ohara Gillentine [id number] SOI Rosalina Ohara Gillentine 02/15/2023 1 [employer] - OPEN ACCESS [id number] Rosalina Ohara Gillentine [id number] SOI Rosalina Ohara Gillentine 03/22/2023 1 [employer] - OPEN ACCESS [id number] Rosalina Ohara Gillentine [id number] SOI Rosalina Ohara [employer] Notes Date Note Type Note Provider Name and Address Organization Details Recorded Time 3 text/html Atraumatic left knee painhypertension no headache no dizzinesshyperlipidemia no headache no dizziness tries to follow low-fatnonspecific fatigueoccasional wheeze with pollen count beingobesity not losing any weightshoulder pain seeing [facility] completedGERD stable Jaime Villanueva MD [address] [employer], [place], [address], [employer] [facility] [employer] 11/30/2022 22:28:27 3 text/html Increasing shortness of breath over the past few weeks at times feels like he can not get a deep breath some wheezing cough largely nonproductive no swelling of legs that is new no PND orthopnea no chest pain no chest pressure Jaime Villanueva MD [address], [place], [address], [employer] [employer] 12/23/2022 21:23:51 3 text/html Not a whole lot better. Albuterol does help no side effects from the new inhaler Jaime Villanueva MD [address], [place], [address], [employer] [employer] 12/28/2022 22:50:28 3 text/html some swelling in his ankles and a little bit rash around the ankle since starting the amlodipine is breathing been largely unchanged is no PND orthopnea constitutional symptoms Jaime Villanueva MD [address], [place], [address], [facility] [employer] [facility] 02/27/2023 18:01:20 3 text/html We switched his amlodipine to losartan HCTZ and his rash went away around his ankles and the swelling has improved Jaime Villanueva MD [address], [place], [address], [employer] [facility] 03/22/2023 21:16:51
--- OUTSIDE RECORDS SUMMARY | 2024-10-17 16:13 | XMS_ITS | Data Portability ---
Author Organization 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 He is going to try to lose a couple of bouts see if that helps with his blood press [email or web address] Not available 03/12/2024 15:20:19 03/22/2024 03/22/2024 increase the Lantus to 40 units b.i.d. Humalog 10 units with meals Accu-Cheks AC and HS follow up 1 month blood sugars weekly to the office for titration orders Dexcom sensor healthy lifestyle care instructions. [email or web address] Not available 03/22/2024 22:18:42 05/31/2024 05/31/2024 Z-Stoney with 1 refill prednisone 40 mg daily x5 days no tobacco for his obesity healthy lifestyle care instructions keep his regular appointment [email or web address] Not available 05/31/2024 23:04:38 06/18/2024 06/18/2024 ENT referral [email or web address] Not available 0 07/20/2024 22:20:30 07/26/2024 07/26/2024 healthy lifestyle care instructions. Blood work. Long conversation with him his bed his insight into his diet in his disease processes he just basically has to get his diet under control start doing some walking. We will continue current therapy he will give me some blood sugar readings in the next week or 2 and we will adjust insulin as we have to. Clinic visit in 4 months Not available 07/26/2024 22:00:48 Plan of Treatment Reminders Order Date Submit Date Provider Last Modified By Organization Details Last Modified Time Details Appointments NURSE ONLY 2024 02:45P M Nurse Not available Not available Not available ANY 15 2024 01:30P M Dannielle Villanueva MD Not available Not available Not available Lab PSA, serum or plasma 2024 025 [facility], [address], [address], [place], [address], 08/02/2024 15:07:43 HbA1c (hemoglob in A1c), blood 2024 025 [facility], [address], [address], [place], [address], 07/27/2024 09:08:33 lipid panel, serum 2024 025 [facility], [address], [address], [place], [address], 07/27/2024 09:08:31 CBC w/ auto diff 2024 025 [facility], [address], [address], [place], [address], 07/27/2024 09:08:34 CMP, serum or plasma 2024 025 [facility], [address], [address], [place], [address], 07/27/2024 09:08:32 T3, free, serum or plasma 2024 025 [facility], [address], [address], [place], [address], 07/27/2024 09:08:36 TSH, serum or plasma 2024 025 [facility], [address], [address], [place], [address], 08/02/2024 15:07:42 T4, free, serum 2024 025 [facility], [address], [address], [place], [address], 07/27/2024 09:08:37 CBC w/ auto diff 2023 024 [facility], [address], [address], [place], [address], 03/07/2024 03:38:28 CMP, serum or plasma 2023 024 [facility], [address], [address], [place], [address], 03/07/2024 03:38:27 lipid panel, serum 2023 024 [facility], [address], [address], [place], [address], 03/07/2024 03:38:27 HbA1c (hemoglob in A1c), blood 2023 024 [facility], [address], [address], [place], [address], 03/07/2024 03:38:28 Referral otolaryng ologist referral 2023 024 [facility], [address], [place], [address], 10/17/2024 03:19:57 Procedures None recorded. Surgeries None recorded. Imaging MRI, brain, w/o contrast 2023 024 [facility] [address], [place], [address], 06/05/2024 17:08:25 Medication Orders Zithromax Z-Stoney 250 mg tablet 2023 024 [facility], [address], [place], [address], 06/18/2024 10:05:58 prednison e 20 mg tablet 2023 024 [facility] [address], [address], [place], [address], 06/18/2024 10:07:31 Lantus Solostar U-100 Insulin 100 unit/mL (3 mL) subcutane ous pen 2023 024 [facility] [address], [address], [place], [address], 07/26/2024 10:07:32 Humalog KwikPen (U-100) Insulin 100 unit/mL subcutane ous 2023 024 [facility] [address], [address], [place], [address], 07/26/2024 10:07:25 nystatin 100,000 unit/gram topical powder 2023 024 [facility], [address], [place], [address], 03/22/2024 15:32:12 Patient TargetsNo targets recorded. 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 Hemotympanum of left tympanic cavity Referring Physician: Dannielle Villanueva, Internal Medicine, Encounter Date: 06/18/2024 Results Created Date Observation Date Name Description Value Unit Range Abnormal Flag Note LastModifiedBy Organization Detail LastModifiedTime 03/06/20 24 03/07/2024 LIPID PANEL cholesterol, total 229 mg/dL 100-19 9 above high normal Not Available [facility] ([facility]) [address] [place], [address], 03/07/2024 03:38:27 03/06/20 24 03/07/2024 LIPID PANEL triglyceride s 443 mg/dL 0-149 above high normal Not Available [facility] ([facility]) [address] [place], [address], 03/07/2024 03:38:27 03/06/20 24 03/07/2024 LIPID PANEL HDL cholesterol 32 mg/dL >39 below low normal Not Available [facility] ([facility]) [address] [place], [address], 03/07/2024 03:38:27 03/06/20 24 03/07/2024 LIPID PANEL VLDL cholesterol sydnee 78 mg/dL 5-40 above high normal Not Available [facility] ([facility]) [address] [place], [address], 03/07/2024 03:38:27 03/06/20 24 03/07/2024 LIPID PANEL LDL chol calc ([facility]) 119 mg/dL 0-99 above high normal Not Available [facility] ([facility]) [address] [place], [address], 03/07/2024 03:38:27 03/06/20 24 03/07/2024 COMP. METAB OLIC PANEL (14) glucose 211 mg/dL 70-99 above high normal Not Available [facility] ([facility]) [address] [facility] [place], [address], 03/07/2024 03:38:27 03/06/20 24 03/07/2024 COMP. METAB OLIC PANEL (14) BUN 21 mg/dL 6-24 Not Available [facility] ([facility]) [address] [facility] [place], [address], 03/07/2024 03:38:27 03/06/20 24 03/07/2024 COMP. METAB OLIC PANEL (14) creatinine 0.95 mg/dL 0.76-1 .27 Not Available [facility] ([facility]) [address] [facility] [place], [address], 03/07/2024 03:38:27 03/06/20 24 03/07/2024 COMP. METAB OLIC PANEL (14) eGFR 93 mL/mi n/1.7 3 >59 Not Available [facility] ([facility]) [address] [place], [address], 03/07/2024 03:38:27 03/06/20 24 03/07/2024 COMP. METAB OLIC PANEL (14) BUN/creatini ne ratio 22 9-20 above high normal Not Available [facility] ([facility]) [address] [place], [address], 03/07/2024 03:38:27 03/06/20 24 03/07/2024 COMP. METAB OLIC PANEL (14) sodium 136 mmol/ L 134-14 4 Not Available [facility] ([facility]) [address] [place], [address], 03/07/2024 03:38:27 03/06/20 24 03/07/2024 COMP. METAB OLIC PANEL (14) potassium 4.3 mmol/ L 3.5-5. 2 Not Available [facility] ([facility]) [address] [place], [address], 03/07/2024 03:38:27 03/06/20 24 03/07/2024 COMP. METAB OLIC PANEL (14) chloride 97 mmol/ L 96-106 Not Available [facility] ([facility]) [address] [place], [address], 03/07/2024 03:38:27 03/06/20 24 03/07/2024 COMP. METAB OLIC PANEL (14) carbon dioxide, total 24 mmol/ L 20-29 Not Available [facility] ([facility]) [address] [place], [address], 03/07/2024 03:38:27 03/06/20 24 03/07/2024 COMP. METAB OLIC PANEL (14) calcium 10.0 mg/dL 8.7-10 .2 Not Available [facility] ([facility]) [address] [place], [address], 03/07/2024 03:38:27 03/06/20 24 03/07/2024 COMP. METAB OLIC PANEL (14) protein, total 7.3 g/dL 6.0-8. 5 Not Available [facility] ([facility]) [address] [place], [address], 03/07/2024 03:38:27 03/06/20 24 03/07/2024 COMP. METAB OLIC PANEL (14) albumin 4.3 g/dL 3.8-4. 9 Not Available [facility] ([facility]) [address] [place], [address], 03/07/2024 03:38:27 03/06/20 24 03/07/2024 COMP. METAB OLIC PANEL (14) globulin, total 3.0 g/dL 1.5-4. 5 Not Available [facility] ([facility]) [address] [place], [address], 03/07/2024 03:38:27 03/06/20 24 03/07/2024 COMP. METAB OLIC PANEL (14) bilirubin, total 0.6 mg/dL 0.0-1. 2 Not Available [facility] ([facility]) [address] [place], [address], 03/07/2024 03:38:27 03/06/20 24 03/07/2024 COMP. METAB OLIC PANEL (14) alkaline phosphatase 105 IU/L 44-121 Not Available [facility] ([facility]) [address] [place], [address], 03/07/2024 03:38:27 03/06/20 24 03/07/2024 COMP. METAB OLIC PANEL (14) AST (SGOT) 101 IU/L 0-40 above high normal Not Available [facility] ([facility]) [address] [facility], [place], [address], 03/07/2024 03:38:27 03/06/20 24 03/07/2024 COMP. METAB OLIC PANEL (14) ALT (SGPT) 105 IU/L 0-44 above high normal Not Available [facility] ([facility]) [address] [place], [address], 03/07/2024 03:38:27 03/06/20 24 03/07/2024 HEMOG LOBIN A1C hemoglobin A1C 11.1 % 4.8-5. 6 above high normal Predi abete s: 5.7 - 6.4 Diabe cristal: >6.4 Glyce jose contr ol for adult s with diabe cristal: <7.0 Not Available [facility] ([facility]) [address] [place], [address], 03/07/2024 03:38:28 03/06/20 24 03/06/2024 CBC WITH DIFFE RENTI AL/PL ATELE T WBC 7.7 x10e3 /uL 3.4-10 .8 Not Available [facility] ([facility]) [address] [facility], [place], [address], 03/07/2024 03:38:28 03/06/20 24 03/06/2024 CBC WITH DIFFE RENTI AL/PL ATELE T RBC 5.49 x10e6 /uL 4.14-5 .80 Not Available [facility] ([facility]) [address] [facility] [address], [place], [address], 03/07/2024 03:38:28 03/06/20 24 03/06/2024 CBC WITH DIFFE RENTI AL/PL ATELE T hemoglobin 16.0 g/dL 13.0-1 7.7 Not Available [facility] ([facility]) [address] [facility], [place], [address], 03/07/2024 03:38:28 03/06/20 24 03/06/2024 CBC WITH DIFFE RENTI AL/PL ATELE T hematocrit 49.4 % 37.5-5 1.0 Not Available [facility] ([facility]) [address] [facility], [place], [address], 03/07/2024 03:38:28 03/06/20 24 03/06/2024 CBC WITH DIFFE RENTI AL/PL ATELE T MCV 90 fL 79-97 Not Available [facility] ([facility]) [address] [place], [address], 03/07/2024 03:38:28 03/06/20 24 03/06/2024 CBC WITH DIFFE RENTI AL/PL ATELE T MCH 29.1 pg 26.6-3 3.0 Not Available [facility] ([facility]) [address] [place], [address], 03/07/2024 03:38:28 03/06/20 24 03/06/2024 CBC WITH DIFFE RENTI AL/PL ATELE T MCHC 32.4 g/dL 31.5-3 5.7 Not Available [facility] ([facility]) [address] [facility], [place], [address], 03/07/2024 03:38:28 03/06/20 24 03/06/2024 CBC WITH DIFFE RENTI AL/PL ATELE T RDW 12.7 % 11.6-1 5.4 Not Available [facility] ([facility]) [address] [facility], [place], [address], 03/07/2024 03:38:28 03/06/20 24 03/06/2024 CBC WITH DIFFE RENTI AL/PL ATELE T platelets 255 x10e3 /uL 150-45 0 Not Available [facility] ([facility]) [address] [facility], [place], [address], 03/07/2024 03:38:28 03/06/20 24 03/06/2024 CBC WITH DIFFE RENTI AL/PL ATELE T neutrophils 53 % notest ab. Not Available [facility] ([facility]) [address] [facility], [place], [address], 03/07/2024 03:38:28 03/06/20 24 03/06/2024 CBC WITH DIFFE RENTI AL/PL ATELE T lymphs 38 % notest ab. Not Available [facility] ([facility]) [address] [facility], [place], [address], 03/07/2024 03:38:28 03/06/20 24 03/06/2024 CBC WITH DIFFE RENTI AL/PL ATELE T monocytes 6 % notest ab. Not Available [facility] ([facility]) [address] [place], [address], 03/07/2024 03:38:28 03/06/20 24 03/06/2024 CBC WITH DIFFE RENTI AL/PL ATELE T eos 2 % notest ab. Not Available [facility] ([facility]) [address] [facility], [place], [address], 03/07/2024 03:38:28 03/06/20 24 03/06/2024 CBC WITH DIFFE RENTI AL/PL ATELE T basos 1 % notest ab. Not Available [facility] ([facility]) [address] [facility], [place], [address], 03/07/2024 03:38:28 03/06/20 24 03/06/2024 CBC WITH DIFFE RENTI AL/PL ATELE T neutrophils (absolute) 4.1 x10e3 /uL 1.4-7. 0 Not Available [facility] ([facility]) [address] [facility], [place], [address], 03/07/2024 03:38:28 03/06/20 24 03/06/2024 CBC WITH DIFFE RENTI AL/PL ATELE T lymphs (absolute) 2.9 x10e3 /uL 0.7-3. 1 Not Available [facility] ([facility]) [address] [facility], [place], [address], 03/07/2024 03:38:28 03/06/20 24 03/06/2024 CBC WITH DIFFE RENTI AL/PL ATELE T monocytes(ab solute) 0.5 x10e3 /uL 0.1-0. 9 Not Available [facility] ([facility]) [address] [facility], [place], [address], 03/07/2024 03:38:28 03/06/20 24 03/06/2024 CBC WITH DIFFE RENTI AL/PL ATELE T eos (absolute) 0.1 x10e3 /uL 0.0-0. 4 Not Available [facility] ([facility]) [address] [facility], [place], [address], 03/07/2024 03:38:28 03/06/20 24 03/06/2024 CBC WITH DIFFE RENTI AL/PL ATELE T baso (absolute) 0.1 x10e3 /uL 0.0-0. 2 Not Available [facility] ([facility]) [address] [facility], [place], [address], 03/07/2024 03:38:28 03/06/20 24 03/06/2024 CBC WITH DIFFE RENTI AL/PL ATELE T immature granulocytes 0 % notest ab. Not Available [facility] ([facility]) [address] [facility], [place], [address], 03/07/2024 03:38:28 03/06/20 24 03/06/2024 CBC WITH DIFFE RENTI AL/PL ATELE T immature grans (abs) 0.0 x10e3 /uL 0.0-0. 1 Not Available [facility] ([facility]) [address] [facility], [place], [address], 03/07/2024 03:38:28 07/26/19 25 07/27/2024 LIPID PANEL cholesterol, total 211 mg/dL 100-19 9 above high normal Not Available [facility] ([facility]) [address] [facility] [place], [address], 07/27/2024 09:08:31 07/26/19 25 07/27/2024 LIPID PANEL triglyceride s 361 mg/dL 0-149 above high normal Not Available [facility] ([facility]) [address] [facility] [place], [address], 07/27/2024 09:08:31 07/26/19 25 07/27/2024 LIPID PANEL HDL cholesterol 37 mg/dL >39 below low normal Not Available [facility] ([facility]) [address] [facility] [place], [address], 07/27/2024 09:08:31 07/26/19 25 07/27/2024 LIPID PANEL VLDL cholesterol sydnee 62 mg/dL 5-40 above high normal Not Available [facility] ([facility]) [address] [facility] [place], [address], 07/27/2024 09:08:31 07/26/19 25 07/27/2024 LIPID PANEL LDL chol calc ([facility]) 112 mg/dL 0-99 above high normal Not Available [facility] ([facility]) [address] [place], [address], 07/27/2024 09:08:31 07/26/19 25 07/27/2024 COMP. METAB OLIC PANEL (14) glucose 150 mg/dL 70-99 above high normal Not Available [facility] ([facility]) [address] [place], [address], 07/27/2024 09:08:32 07/26/19 25 07/27/2024 COMP. METAB OLIC PANEL (14) BUN 20 mg/dL 6-24 Not Available [facility] ([facility]) [address] [place], [address], 07/27/2024 09:08:32 07/26/19 25 07/27/2024 COMP. METAB OLIC PANEL (14) creatinine 0.81 mg/dL 0.76-1 .27 Not Available [facility] ([facility]) [address] [place], [address], 07/27/2024 09:08:32 07/26/19 25 07/27/2024 COMP. METAB OLIC PANEL (14) eGFR 103 mL/mi n/1.7 3 >59 Not Available [facility] ([facility]) [address] [place], [address], 07/27/2024 09:08:32 07/26/19 25 07/27/2024 COMP. METAB OLIC PANEL (14) BUN/creatini ne ratio 25 9-20 above high normal Not Available [facility] ([facility]) [address] [place], [address], 07/27/2024 09:08:32 07/26/19 25 07/27/2024 COMP. METAB OLIC PANEL (14) sodium 136 mmol/ L 134-14 4 Not Available [facility] ([facility]) [address] [place], [address], 07/27/2024 09:08:32 07/26/19 25 07/27/2024 COMP. METAB OLIC PANEL (14) potassium 4.1 mmol/ L 3.5-5. 2 Not Available [facility] ([facility]) [address] [place], [address], 07/27/2024 09:08:32 07/26/19 25 07/27/2024 COMP. METAB OLIC PANEL (14) chloride 96 mmol/ L 96-106 Not Available [facility] ([facility]) [address] [place], [address], 07/27/2024 09:08:32 07/26/19 25 07/27/2024 COMP. METAB OLIC PANEL (14) carbon dioxide, total 23 mmol/ L 20-29 Not Available [facility] ([facility]) [address] [place], [address], 07/27/2024 09:08:32 07/26/19 25 07/27/2024 COMP. METAB OLIC PANEL (14) calcium 9.9 mg/dL 8.7-10 .2 Not Available [facility] ([facility]) [address] [place], [address], 07/27/2024 09:08:32 07/26/19 25 07/27/2024 COMP. METAB OLIC PANEL (14) protein, total 7.0 g/dL 6.0-8. 5 Not Available [facility] ([facility]) [address] [facility] [place], [address], 07/27/2024 09:08:32 07/26/19 25 07/27/2024 COMP. METAB OLIC PANEL (14) albumin 4.4 g/dL 3.8-4. 9 Not Available [facility] ([facility]) [address] [facility] [place], [address], 07/27/2024 09:08:32 07/26/19 25 07/27/2024 COMP. METAB OLIC PANEL (14) globulin, total 2.6 g/dL 1.5-4. 5 Not Available [facility] ([facility]) [address] [facility] [place], [address], 07/27/2024 09:08:32 07/26/19 25 07/27/2024 COMP. METAB OLIC PANEL (14) bilirubin, total 0.6 mg/dL 0.0-1. 2 Not Available [facility] ([facility]) [address] [facility] [place], [address], 07/27/2024 09:08:32 07/26/19 25 07/27/2024 COMP. METAB OLIC PANEL (14) alkaline phosphatase 103 IU/L 44-121 Not Available [facility] [address] [facility], [place], [address], 07/27/2024 09:08:32 07/26/19 25 07/27/2024 COMP. METAB OLIC PANEL (14) AST (SGOT) 127 IU/L 0-40 above high normal Not Available [facility] ([facility]) [address] [facility], [place], [address], 07/27/2024 09:08:32 07/26/19 25 07/27/2024 COMP. METAB OLIC PANEL (14) ALT (SGPT) 119 IU/L 0-44 above high normal Not Available [facility] ([facility]) [address] [place], [address], 07/27/2024 09:08:32 07/26/19 25 07/27/2024 HEMOG LOBIN A1C hemoglobin A1C 10.2 % 4.8-5. 6 above high normal Predi abete s: 5.7 - 6.4 Diabe cristal: >6.4 Glyce jose contr ol for adult s with diabe cristal: <7.0 Not Available [facility] ([facility]) [address] [facility], [place], [address], 07/27/2024 09:08:33 07/26/19 25 07/27/2024 CBC WITH DIFFE RENTI AL/PL ATELE T WBC 6.6 x10e3 /uL 3.4-10 .8 Not Available [facility] ([facility]) [address] [facility], [place], [address], 07/27/2024 09:08:34 07/26/19 25 07/27/2024 CBC WITH DIFFE RENTI AL/PL ATELE T RBC 5.34 x10e6 /uL 4.14-5 .80 Not Available [facility] ([facility]) [address] [facility], [place], [address], 07/27/2024 09:08:34 07/26/19 25 07/27/2024 CBC WITH DIFFE RENTI AL/PL ATELE T hemoglobin 15.6 g/dL 13.0-1 7.7 Not Available [facility] ([facility]) [address] [place], [address], 07/27/2024 09:08:34 07/26/19 25 07/27/2024 CBC WITH DIFFE RENTI AL/PL ATELE T hematocrit 46.5 % 37.5-5 1.0 Not Available [facility] ([facility]) [address] [place], [address], 07/27/2024 09:08:34 07/26/19 25 07/27/2024 CBC WITH DIFFE RENTI AL/PL ATELE T MCV 87 fL 79-97 Not Available [facility] ([facility]) [address] [place], [address], 07/27/2024 09:08:34 07/26/19 25 07/27/2024 CBC WITH DIFFE RENTI AL/PL ATELE T MCH 29.2 pg 26.6-3 3.0 Not Available [facility] ([facility]) [address] [facility], [place], [address], 07/27/2024 09:08:34 07/26/19 25 07/27/2024 CBC WITH DIFFE RENTI AL/PL ATELE T MCHC 33.5 g/dL 31.5-3 5.7 Not Available [facility] ([facility]) [address] [facility], [place], [address], 07/27/2024 09:08:34 07/26/19 25 07/27/2024 CBC WITH DIFFE RENTI AL/PL ATELE T RDW 13.1 % 11.6-1 5.4 Not Available [facility] ([facility]) [address] [facility], [place], [address], 07/27/2024 09:08:34 07/26/19 25 07/27/2024 CBC WITH DIFFE RENTI AL/PL ATELE T platelets 265 x10e3 /uL 150-45 0 Not Available [facility] ([facility]) [address] [facility], [place], [address], 07/27/2024 09:08:34 07/26/19 25 07/27/2024 CBC WITH DIFFE RENTI AL/PL ATELE T neutrophils 56 % notest ab. Not Available [facility] ([facility]) [address] [facility], [place], [address], 07/27/2024 09:08:34 07/26/19 25 07/27/2024 CBC WITH DIFFE RENTI AL/PL ATELE T lymphs 35 % notest ab. Not Available [facility] ([facility]) [address] [facility], [place], [address], 07/27/2024 09:08:34 07/26/19 25 07/27/2024 CBC WITH DIFFE RENTI AL/PL ATELE T monocytes 6 % notest ab. Not Available [facility] ([facility]) [address] [facility], [place], [address], 07/27/2024 09:08:34 07/26/1907/27/2024 CBC WITH DIFFE RENTI AL/PL ATELE T eos 2 % notest ab. Not Available [facility] ([facility]) [address] [facility], [place], [address], 07/27/2024 09:08:34 07/26/19 25 07/27/2024 CBC WITH DIFFE RENTI AL/PL ATELE T basos 1 % notest ab. Not Available [facility] ([facility]) [address] [facility], [place], [address], 07/27/2024 09:08:34 07/26/19 25 07/27/2024 CBC WITH DIFFE RENTI AL/PL ATELE T neutrophils (absolute) 3.7 x10e3 /uL 1.4-7. 0 Not Available [facility] ([facility]) [address] [facility], [place], [address], 07/27/2024 09:08:34 07/26/1907/27/2024 CBC WITH DIFFE RENTI AL/PL ATELE T lymphs (absolute) 2.3 x10e3 /uL 0.7-3. 1 Not Available [facility] ([facility]) [address] [facility], [place], [address], 07/27/2024 09:08:34 07/26/1907/27/2024 CBC WITH DIFFE RENTI AL/PL ATELE T monocytes(ab solute) 0.4 x10e3 /uL 0.1-0. 9 Not Available [facility] ([facility]) [address] [facility], [place], [address], 07/27/2024 09:08:34 07/26/19 25 07/27/2024 CBC WITH DIFFE RENTI AL/PL ATELE T eos (absolute) 0.1 x10e3 /uL 0.0-0. 4 Not Available [facility] ([facility]) [address] [place], [address], 07/27/2024 09:08:34 07/26/19 25 07/27/2024 CBC WITH DIFFE RENTI AL/PL ATELE T baso (absolute) 0.1 x10e3 /uL 0.0-0. 2 Not Available [facility] ([facility]) [address] [facility], [place], [address], 07/27/2024 09:08:34 07/26/1907/27/2024 CBC WITH DIFFE RENTI AL/PL ATELE T immature granulocytes 0 % notest ab. Not Available [facility] ([facility]) [address] [facility], [place], [address], 07/27/2024 09:08:34 07/26/1907/27/2024 CBC WITH DIFFE RENTI AL/PL ATELE T immature grans (abs) 0.0 x10e3 /uL 0.0-0. 1 Not Available [facility] ([facility]) [address] [place], [address], 07/27/2024 09:08:34 07/26/1907/27/2024 TRIIO DOTHY KENTON E (T3), FREE triiodothyro nine (T3), free 2.9 pg/mL 2.0-4. 4 Not Available [facility] ([facility]) [address] [place], [address], 07/27/2024 09:08:35 07/26/1907/27/2024 T4,FR EE(DI RECT) T4,free(dire ct) 1.08 NG/dL 0.82-1 .77 Not Available [facility] ([facility]) [address] [place], [address], 07/27/2024 09:08:37 07/26/19 25 08/02/2024 THYRO ID STIMU LATIN G HORMO NE TSH-icma 3.7 uu/mL Refer ence Range : Non-P regna nt Adult 0.450 -4.50 0 Not Available [facility] [address] [place], [address], 08/02/2024 15:07:42 07/26/19 25 08/02/2024 PROST ATE SPECI FIC ANTIG EN prostate specific antigen 1.084 NG/mL This PSA resul t was deter mined using the Matthew Kenney Cuisinei lumin ometr ic immun oassa y and value s obtai beti canno t be evalu ated inter ring eably with diffe rent assay metho ds or kits. This PSA resul t alone canno t be inter prete d as absol gary evide nce of the prese nce or absen ce of disea se. Refer ence Range : >=40y : 97% of contr ols are <4.0. PSA level s have been repor abdulkadir to corre late with prost ate size. Value s >4.0 are commo n in patie nts with prost atic hyper plasi a. Not Available [facility] [address] [facility] [place], [place], [address], 08/02/2024 15:07:43 04/16/20 24 04/16/2024 XR, knee No observ ation record ed. [address] [place] [address], [address], 04/18/2024 22:39:41 04/16/20 24 04/16/2024 XR, knee No observ ation record ed. [address] [place] [address], [address], 04/18/2024 22:39:42 07/24/19 25 07/24/2024 XR, knee, 4 or more view No observ ation record ed. [address] [place] [address], [address], 07/25/2024 09:14:46 07/24/19 25 07/24/2024 XR, knee, 1 or 2 view No observ ation record ed. [address] [facility], [place], [address], 07/25/2024 09:14:20 10/18/19 25 10/17/2024 imagi ng/di agnos tic resul t No observ ation record ed. [address], [place], [address], 10/17/2024 17:10:15 Result Notes None recorded. 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 Procedures Surgical History Date Name Laterality Status Provider Name and Address Organization Details Recorded Time 07/11/19 16 Carpal tunnel surgery completed Desiree Champion [place] [facility] 03/05/2024 16:15:18 07/11/18 89 cholecystectomy completed Desiree Champion [place] [facility] 03/05/2024 16:15:41 Imaging Results Imaging Date Name Status LastModified by Organiz ation Details LastModified Time 04/16/2024 XR, knee completed [address] [place] [address], [place], [address], 04/18/2024 22:39:41 04/16/2024 XR, knee completed [address] [place] [address] [address], [place], [address], 04/18/2024 22:39:42 07/24/2024 XR, knee, 4 or more view completed [address] [place] [address], [address], 07/25/2024 09:14:46 07/24/2024 XR, knee, 1 or 2 view completed [address] [address], [place], [address], 07/25/2024 09:14:20 10/17/2024 imaging/diag nostic result active [address], [address], 10/17/2024 17:10:15 Procedure Notes None recorded. Medical Equipment None Reported. Allergies Allergen ID Allergen Name Allergen Category Reaction Reaction Severity Criticality Documentation Date Start Date Code Code System Note Provider Name and Address Organization Details Recorded Time 754750 Substance with sulfonami de structure and antibacte rial mechanism of action (substanc e) medicatio n rash Not available Not available 10/24/2023 30407 8003 SNOMED Not Available Not Available Not Available Medications Name Sig Start Date Stop Date Status Note LastModified by Organization Details LastModified Time metformin 500 mg tablet Take 1 tablet by mouth once daily 2024 active Not Available Not Available Not Avai lable prednison e 10 mg tablet TAKE 1 TABLET BY MOUTH ONCE DAILY FOR 7 DAYS 10/23 completed Not Available Not Available Not Available doxycycli ne hyclate 100 mg capsule TAKE 1 CAPSULE BY MOUTH TWICE DAILY FOR 7 DAYS 03/05 completed Not Available Not Available Not Available atorvasta tin 20 mg tablet TAKE 1 TABLET BY MOUTH ONCE DAILY IN THE EVENING active Not Available Not Available No t Available azithromy vivian 250 mg tablet Take 1 dose pk by oral route as directed . 06/18 completed Not Available Not Available Not Available ibuprofen 800 mg tablet TAKE 1 TABLET BY MOUTH TWICE DAILY NEEDED 10/23 completed Not Available Not Available Not Available Nystop 100,000 unit/gram topical powder APPLY POWDER TOPICALL Y TO THE AFFECTED AREA(S) TWICE DAILY FOR 2 WEEKS 03/22 completed Not Available Not Available Not Available prednison e 20 mg tablet Take 2 tablets every day by oral route for 5 days. 06/18 completed Not Available Not Available Not Available omeprazol e 40 mg capsule,d elayed release Take 1 capsule by mouth once daily 2024 active Not Available Not Available Not Avai lable aspirin 81 mg tablet,de layed release Take 1 tablet every day by oral route. 10/16 completed noseblee ds Not Available Not Available Not Available losartan 100 mg-hydroc hlorothia zide 25 mg tablet Take 1 tablet by mouth once daily 2024 active Not Available Not Available Not Avai lable amlodipin e 10 mg tablet TAKE 1 TABLET BY MOUTH ONCE DAILY 10/23 completed Not Available Not Available Not Available cephalexi n 500 mg capsule TAKE 1 CAPSULE BY MOUTH THREE TIMES DAILY FOR 7 DAYS 03/05 completed Not Available Not Available Not Available monteluka st 10 mg tablet TAKE 1 TABLET BY MOUTH ONCE DAILY active Not Available Not Available No t Available cefuroxim e axetil 500 mg tablet TAKE 1 TABLET BY MOUTH EVERY 12 HOURS FOR 10 DAYS 10/23 completed Not Available Not Available Not Available albuterol sulfate HFA 90 mcg/actua tion aerosol inhaler INHALE 2 PUFFS BY MOUTH EVERY 4 HOURS active Not Available Not Available No t Available doxycycli ne hyclate 100 mg tablet TAKE 1 TABLET BY MOUTH TWICE DAILY 10/23 completed Not Available Not Available Not Available insulin lispro (U-100) 100 unit/mL subcutane ous pen INJECT 10 UNITS SUBCUTAN EOUSLY WITH MEALS 2024 active Not Available Not Available Not Avai lable Levemir FlexPen 100 unit/mL (3 mL) solution subcutane ous insulin pen INJECT 15 UNITS SUBCUTAN EOUSLY TWICE DAILY active Not Available Not Available No t Available pen needle, diabetic 31 gauge x 3/16 USE NEW PEN NEEDLE TO INJECT INSULIN 4 TIMES DAILY DIRECTED active Not Available Not Available No t Available Lantus Solostar U-100 Insulin 100 unit/mL (3 mL) subcutane ous pen INJECT 55 UNITS SUBCUTAN EOUSLY TWICE DAILY 2024 active Not Available Not Available Not Avai lable nebivolol 5 mg tablet take 1 tablet by mouth once daily 03/22 completed Not Available Not Available Not Available Xhance 93 mcg/actua tion breath activated aerosol active Not Available Not Available Not Available Breztri Aerospher e 160 mcg-9mcg- 4.8mcg/ac tuation HFA aerosol inhaler INHALE 2 PUFFS TWICE DAILY active Not Available Not Available No t Available insulin glargine- yfgn (U-100) 100 unit/mL (3 mL) subcutane ous pen INJECT 40 UNITS SUBCUTAN EOUSLY TWICE DAILY 2023 active Not Available Not Available Not Avai lable Paxlovid 300 mg (150 mg x 2)-100 mg tablets in a dose pack TAKE 3 TABLETS BY MOUTH TWICE DAILY FOR 5 DAYS 10/23 completed Not Available Not Available Not Available Ozempic 2 mg/dose (8 mg/3 mL) subcutane ous pen injector INJECT 2 MG SUBCUTAN EOUSLY ONCE A WEEK active Not Available Not Available No t Available Dexcom G7 Sensor device CHANGE/A PPLY NEW SENSOR EVERY 10 DAYS DIRECTED active Not Available Not Available No t Available Vitals Date Recorded Body height Body mass index (BMI) Body weight Heart rate Oxygen saturation Oxygen saturation in Arterial blood by Pulse oximetry Systolic blood pressure Diastolic blood pressure Provider Name and Address Organization Details Last Updated DateTime 4 182.88 cm 42.5 kg/m2 706219. 84 g 94 /min 95 % 95 % 132 mm[Hg] 94 mm[Hg] [facility] 4 16:10:12 Date Recorded Body height Body mass index (BMI) Body weight Oxygen saturation Oxygen saturation in Arterial blood by Pulse oximetry Heart rate Systolic blood pressure Diastolic blood pressure Provider Name and Address Organization Details Last Updated DateTime 4 182.88 cm 42.3 kg/m2 048133. 82 g 97 % 97 % 93 /min 122 mm[Hg] 84 mm[Hg] [facility] 4 15:21:26 Date Recorded Body height Body mass index (BMI) Body weight Heart rate Oxygen saturation Oxygen saturation in Arterial blood by Pulse oximetry Systolic blood pressure Diastolic blood pressure Provider Name and Address Organization Details Last Updated DateTime 4 182.88 cm 43.6 kg/m2 175587. 87 g 80 /min 96 % 96 % 124 mm[Hg] 68 mm[Hg] Allegra Balbuena MA [facility] 4 14:59:59 Date Recorded Body height Body mass index (BMI) Body weight Heart rate Oxygen saturation Oxygen saturation in Arterial blood by Pulse oximetry Systolic blood pressure Diastolic blood pressure Provider Name and Address Organization Details Last Updated DateTime 4 182.88 cm 42.6 kg/m2 184426. 44 g 91 /min 96 % 96 % 140 mm[Hg] 82 mm[Hg] Desiree Champion MA [facility] 4 09:54:13 Date Recorded Body height Body mass index (BMI) Body weight Heart rate Oxygen saturation Oxygen saturation in Arterial blood by Pulse oximetry Systolic blood pressure Diastolic blood pressure Provider Name and Address Organization Details Last Updated DateTime 5 182.88 cm 44 kg/m2 166402. 36 g 88 /min 96 % 96 % 126 mm[Hg] 64 mm[Hg] Allegra Balbuena MA [facility] 5 14:07:47 Social History Question Answer Notes LastModified by Organizat ion Details LastModified Time Tobacco Smoking Status Former Smoker Coco Huynh MA [facility], [facility] 10/24/2023 16:02:09 Do You Have An Advance Directive? No Information not available 03/05/2024 What Is Your Level Of Alcohol Consumption? Occasional Information not available 10/24/2023 Are You Blind Or Do You Have Difficulty Seeing? No Information not available 10/24/2023 What Is Your Level Of Caffeine Consumption? Occasional Information not available 03/05/2024 In The 14 Days Before Symptom Onset, Have You Had Close Contact With A Laboratory-confir med COVID-19 While That Case Was Ill? No Information not available 03/05/2024 In The 14 Days Before Symptom Onset, Have You Had Close Contact With A Person Who Is Under Investigation For COVID-19 While That Person Was Ill? No Information not available 03/05/2024 Have You Been To An Area Known To Be High Risk For COVID-19? No Information not available 03/05/2024 Are You Currently Employed? Yes Information not available 03/05/2024 Are You Deaf Or Do You Have Serious Difficulty Hearing? No Information not available 10/24/2023 What Type Of Diet Are You Following? REGULAR Information not available 03/05/2024 Are There Any Guns Present In Your Home? No Information not available 03/05/2024 What Was The Date Of Your Most Recent Tobacco Screening? 07/26/2024 [email or web address] Information not available 07/26/2024 What Is Your Relationship Status? Information not available 10/24/2023 Do You Use Your Seat Belt Or Car Seat Routinely? Yes Information not available 10/24/2023 Do You Have Smoke And Carbon Monoxide Detectors In Your Home? Yes Information not available 03/05/2024 How Much Tobacco Do You Smoke? 3+ PPD Information not available 10/24/2023 Do You Feel Stressed (tense, Restless, Nervous, Or Anxious, Or Unable To Sleep At Night)? [id number] Information not available 10/24/2023 Do You Use Any Illicit Or Recreational Drugs? No Information not available 03/05/2024 Do You Use Sunscreen Routinely? Yes Information not available 03/05/2024 Sex: Male Functional Status Question Answer Note LastModified by Organization D etails LastModified Time Are you able to care for yourself? Yes Information n ot available 10/24/2023 Mental Status None recorded. Family History Relationship Description Onset Age of this Age Resolved Age Notes LastModified by Organization Details LastModified Time Mother Malignant tumor of breast [email or web address] Not available 2023 16:01:56 Medical History Condition Response Diabetes Y Acid Reflux (GERD) Y High Blood Pressure Y Allergies Y High Cholesterol Y Immunizations Vaccine Type Date Status Note Provider Saran james and Address Organization Details Recorded Time Influenza, MDCK, quadrivalent, PF 9 completed Allegra Seha, [place], [place] [facility] 07/26/2024 14:05:29 Influenza, MDCK, quadrivalent, PF 2 completed Allegra Esha, [place] [facility] 07/26/2024 14:05:29 zoster recombinant 2 completed Allegra Esha, [place] [facility] 07/26/2024 14:05:29 zoster recombinant 2 completed Allegra Esha, [place] [facility] 07/26/2024 14:05:29 COVID-19, mRNA, LNP-S, PF, 100 mcg/0.5mL dose or 50 mcg/0.25mL dose 1 completed Allegra Esha, [place] [facility] 07/26/2024 14:05:29 COVID-19, mRNA, LNP-S, PF, 100 mcg/0.5mL dose or 50 mcg/0.25mL dose 1 completed Allegra Esha, [place] [facility] 07/26/2024 14:05:29 COVID-19, mRNA, LNP-S, PF, 100 mcg/0.5mL dose or 50 mcg/0.25mL dose 1 completed Allegra Esha, [place] [facility] 07/26/2024 14:05:29 COVID-19, mRNA, LNP-S, bivalent, PF, 30 mcg/0.3 mL dose 2 completed Allegra Esha, [place] [facility] 07/26/2024 14:05:29 influenza, unspecified formulation 8 completed Allegra Esha, [place] [facility] 07/26/2024 14:05:29 Tdap 4 completed Allegra Esha, [place] [facility] 07/26/2024 14:05:29 Influenza, split virus, trivalent, preservative 1 completed Allegra Esha, [place] [facility] 07/26/2024 14:05:29 Influenza, split virus, trivalent, PF 4 completed Allegra Esha, [place] [facility] 07/26/2024 14:05:29 Influenza, split virus, quadrivalent, PF 7 completed Allegra Balbuena [place] [facility] 07/26/2024 14:05:29 Influenza, split virus, quadrivalent, PF 6 completed Allegra Balbu[place] [facility] 07/26/2024 14:05:29 Past Encounters Encounter ID Performer Location Encounter Start Date Encounter Closed Date Diagnosis/Indication Diagnosis SNOMED-CT Code Diagnosis ICD10 Code Diagnosis Note [id number] Dannielle Villanueva MD [facility] [place] [address] [place] [address] 10/24/2023 15:47:14 10/24/2023 16:18:51 Essential hypertension 89908856 I10 Hyperlipidemia 29569841 E78.5 Type 2 kenneth betes mellitus 29980139 E11.9 Asthma-chr onic obstructive pulmonary disease overlap syndrome 3200733907 3838691 J44.9 [id number] Dannielle Villanueva MD [facility] [place] [address] [place] [address] 03/05/2024 15:29:39 03/05/2024 17:18:32 Obese 402770979 E66.9 Headache 96498244 R51.9 Diabetes mellitus 794748 09 E11.9 Eruption 276056529 R21 Dizziness 925796371 R42 Essential hypertension 67681900 I10 [id number] Dannielle Villanueva MD [facility] [place] [address] [place] [address] 03/22/2024 15:02:55 03/22/2024 16:36:52 Obesity 111322167 E66.8 Type 2 kenneth betes mellitus 84744763 E11.9 Hyperlipidemia 32610082 E78.5 Essential hypertension 96589383 I10 [id number] Dannielle Villanueva MD [facility] [place] [address] [place] [address] 05/31/2024 14:43:56 05/31/2024 16:07:34 Morbid obesity 950300081 E66.01 Bronchitis 95001567 J40 [id number] Dannielle Villanueva MD [facility] [place] [address] [place] [address] 06/18/2024 09:44:00 06/18/2024 10:25:04 Body mass index 40+ - severely obese 309618803 Z68.41 Morbid obesity 876422939 E66.01 Hemotympan um of left tympanic cavity 8489230506 585329 H73.825 [id number] Dannielle Villanueva MD [facility] [place] [address] [place] [address] 07/26/2024 13:55:37 07/26/2024 14:27:14 Body mass index 30+ - obesity 173432215 Z68.41 Obesity 284067777 E66.9 Essential hypertension 03592335 I10 Hyperlipidemia 01396043 E78.5 Type 2 kenneth betes mellitus 74920793 E11.9 Screening for malignant neoplasm of prostate 986176671 Z12.5 Asthma-chr onic obstructive pulmonary disease overlap syndrome 7687830240 8435878 J44.9 Health Concerns Section Related Observation LastModified by Organization Detai ls LastModified Time None Recorded Concern Status LastModified by Organization Details LastModified Time None Recorded Advance Directives Directive N: Payers Encounter Date Sequence Insurance Name Policy Number Policy Veloz Covered Member ID Veloz Member ID Guarantor Name 03/05/2024 1 Fraxion [id number] Calvni D Gillentine [id number] SOI [id number] Calvin D Gillentine 03/22/2024 1 Fraxion [id number] Calvin D Gillentine [id number] SOI [id number] Calvin D Gillentine 05/31/2024 1 Fraxion [id number] Calvin D Gillentine [id number] SOI [id number] Calvin D Gillentine 06/18/2024 1 Fraxion [id number] Calvin D Gillentine [id number] SOI [id number] Calvin D Gillentine 07/26/2024 1 Fraxion [id number] Calvin D Gillentine [id number] SOI [id number] [id number] Calvin D Gillentine Notes Date Note Type Note Provider Name and Address Organization Details Recorded Time 03/05/2024 text/html he has and Advil dull headache dizzy spells from time to time he is gaining weight not watching what he eats. He also has a rash in his groin area. Has a bit of pain right inner thigh as well and some numbness and tingling in that area. Dannielle Villanueva MD Attn: Accounting[address] [facility], [place], [address], [facility] 03/12/2024 15:20:37 03/22/2024 text/html A1c came back 11 he has been put on insulin diet poor no walking. Cooking a lot of fatty food and high caloric processed headaches have gotten better as the sugars have started to come down Dannielle Villanueva MD Attn: Accounting, [address] [facility], [place], [address], [facility] 03/22/2024 22:19:07 05/31/2024 text/html cough congestion wheezing a little bit of left ear pain couple of days to COVID test today negative Dannielle Villanueva MD Attn: Accounting, [address] [facility], [place], [address], [facility] 05/31/2024 23:05:01 06/18/2024 text/html acute appointmen t upper respiratory symptomatology and now he is having problems with blood from left ear somewhat painful unclear if he was putting things in his ear Dannielle Villanueva MD Attn: Accounting, [address] [place], [address], [facility] 07/20/2024 22:20:50 07/26/2024 text/html blood sugars hav e been 250-300 and we have adjusted his insulin yesterday please see the patient case sugars are coming down a little bit no obesity needs help losing weight. Hypertension no headache or dizziness hyperlipidemia diet is poor Dannielle Villanueva MD Attn: Accounting[address] [facility], [place], [address], [facility] 07/26/2024 22:01:06
[2024-10-17 16:14] VITALS: BP 128/81; PULSE 94; RESP 18; TEMP 36.3; O2SAT 97
--- OUTSIDE RECORDS SUMMARY | 2024-10-17 16:35 | XMS_ITS | Referral Summary ---
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
--- OUTSIDE RECORDS SUMMARY | 2024-10-17 16:35 | XMS_ITS | CONTINUITY OF CARE DOCUMENT ---
Author Name valentino avelar Address Unknown Organization [facility] Address [address] [place] [address] Phone [phone] Care Team Providers Care Slate Trimmer Name Role Phone Jackson Young MD Unavailable [phone] DANNIELLE MAYERS DO Unavailable PROBLEMS Condition Status Date Provider Notes Mitral insufficiency, mild active Jackson gonzalez MD LVH and lae active Jackson Young MD Hypertriglyceridemia active Jackson Ohara Hypothyroidism active Jackson Young MD Microalbuminuria active Jackson Young MD Screening active Jackson Young MD Hyperlipidemia; with high crp active Jackson Young MD Diabetes mellitus, type 2 active Yaz Cha chendick [employer] Obesity active Yaz Chachenal [employer] Exposure to COVID-19 coronavirus;had vaccine AND NEG SWAB active Jackson Young MD Fatty liver active Yaz Santiago NP Chest pain, atypical active Jackson Ohara Shortness of breath completed - Jackson Young MD FAMILY HISTORY OF HEART DISEASE active Lee Young MD dad cad Tobacco use, quit active Jackson Young MD VICKIE active Yaz Santiago [employer] GERD (gastroesophageal reflu x disease) active Yaz Santiago [employer] Hypertension active Yaz Santiago [employer] ENCOUNTERS Date Type Provider Location Encounter Diag nosis - In-person encounter Office Visit Jackson Young MD [facility] ScreeningShortness of breathFAMILY HISTORY OF HEART DISEASETobacco use, quit - In-person encounter Office Visit Jackson Young MD [facility] ScreeningHyperlipidemia; with high crpDiabetes mellitus, type [...] Chandrika respiratory rate E&M 19 /min Sheba Poneto weight E&M 323 [lb_av] Sheba Chandrika height [...] iron binding capacity, total 432 ug/dL [employer] [phone]/07/3 0 free thyroxine index 1.6 [employer] 1.2-4.9 [...] High 0 cholesterol, serum 140 mg/dL [employer] [phone]/07/3 0 basophil count, absolute 0.1 x10E3/uL [employer] [...] Estab. 0 platelet count 276 X10E3/UL [employer] 004-656 7990/07/3 0 red blood cell distribution width 13.1 [...] 3.5-5.2 0 sodium, serum 141 mmol/L [employer] 195-107 5980/07/3 0 urea nitrogen/creatinine ratio, serum 29 [employer] [...] weeks then increase to 0.5mg weekly [facility] mg tablet completed Take 1 tablet by mouth at bedtime TAKE 1 TABLET BY MOUTH EVERY EVENING - [facility] levothyroxine 25 mcg tablet active Take 1 tablet by mouth once a day [facility] Altace 1.25 mg capsule completed Take 1 capsule by mouth every morning - [facility] aspirin 81 mg tablet,delayed release (DR/EC) active Take 1 tablet by mouth once a day Yaz Santiago NP Vascepa 1 gram capsule completed Take 2 capsule by mouth twice a day - Jackson Young MD Jardiance 10 mg tablet completed Take 1 tablet by mouth once a day - [facility] montelukast 10 mg tablet active TAKE 1 [...] Vanessa jeffrey number of grandchildren Jackson Santiago [employer] quit smoking, stage quit Yaz marcano [employer] smoking history, tot al pack/day 3-4 pk qd Sheba Masby number of years as a smoker 30 a Sheba Masby smoking, year quit 2012 Sheba Bu sby cigarette use yes Sheba Poneto smoking status Former smoker Sheba Masby INSURANCE PROVIDERS Payer name Policy type / Coverage type [employer] red republican ID [employer] OPEN ACCESS Other [id number] [employer] Name Date DISCUSSED - NO DECISION MADE TREATMENT PLAN Date Name Performer [id number],S,suggeste rosalie Young MD [id number],S,T he patient is between 55-77 years old [...] undergo diagnosis and treatment. Jackson Young MD [id number],S, H is updated medication list for this [...] (02/06/2021) HDL: 34 (02/06/2021) Jackson Young MD [id number],S, Jackson yung MD [id number],S, Jackson yung MD [id number],S, Jackson yung MD [id number],C,pro 23 Jackson Young MD [id number],S, N ew diagnosis A 1c 7.7 start jardiance and ACEi Jackson Young MD [id number],S, C ompliant with CPAP Jackson Young MD [id number],S, 6 2 Jackson Young MD [id number],S,n eg anand and neg hoilkter n eg dd and vit d and and b12, and iron Jackson Young MD [id number],S, Jackson yung MD [id number],S, n eg trop and NEG NUC twice Jackson Young MD [id number],S, Jackson yung MD [id number],C,neg trop and NEG NUC Jackson Young MD [id number],C,neg trop Lee Young MD [id number],C,62 Jackson singh MD [id number],C,n eg dd and vit d and fretignn and b12, pro 23 Jackson Young MD [id number],S,Compliant wit h CPAP Yaz Starlal[facility] CHANNING [id number],S, B P today: 128/87 Yaz Starlaluizsc [place] [id number],S,L DL 67, trig 168 s tart vascepa [facility] [place] [id number],S,N ew diagnosis A 1c 7.7 start jardiance and ACEi [facility] [place] [id number],N,N ew onset, echo, CXR, PFT, stress test, lab work, Leg swelling: venous duplex, ANAND Yaz Starlajason SNELL [id number],N,n egative stress 2018 and normal echo 2018 stress test, echo Brigantine Valentínsc [employer] Cardiology follow up :suggeste s leave Jackson [...] Cardiology: B P today: 128/87 Yaz Santiago [employer] Cardiology:LDL 67, t rig 168 s tart vascepa Yaz Santiago [employer] Cardiology:New diagn osis A 1c 7.7 start jardiance and ACEi Yaz Santiago [employer] Cardiology:New onset , echo, CXR, PFT, stress test, lab work, Leg swelling: venous duplex, ANAND Yaz Santiago [employer] Cardiology:negative stress 2018 and normal echo 2018 stress test, echo Yaz Santiago NP Date Name Complete Echo DLCO - 31492 FRC - 85077 FVC - 24846 CT, Coronary Calcium Score Renal Artery Duplex TROPONIN T Venous Doppler Bilat eral LE - Reflux Arterial Duplex Bi-L ower EX Microalb/Creatinine Urine, Random Stress Regadenoson Holter Monitor 24 Hr TSH, free T4, total T3 D-DIMER, QUANTITATIV E TROPONIN I IRON AND TOTAL IRON BINDING CAPACITY FERRITIN VITAMIN B12 Vitamin D, 25-Hydrox y Complete Echo DLCO - 02549 FRC - 09827 FVC - 58544 PROBNP, N TERMINAL COMPREHENSIVE METABO LIC PANEL, W/EGFR CBC (INCLUDES DIFF/P LT) C-REACTIVE PROTEIN LIPID PANEL HISTORY OF PROCEDURES Procedure Date Procedure Name Provider Procedure Notes S tatus EKG Jackson Young MD complete d
--- OUTSIDE RECORDS SUMMARY | 2024-10-17 16:35 | XMS_ITS | Clinical Summary ---
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
[2024-10-17] MEDS: KETOROLAC 15 MG/ML VIAL (*BKC) IV PUSH (17:54)
[2024-10-17] MEDS: METOCLOPRAMIDE HCL INJ 10 MG/2 ML VIAL IV PUSH (17:54)
[2024-10-17] MEDS: diphenhydrAMINE HCl INJ 50 MG/ML VIAL 25 MG IV PUSH (17:54)
[2024-10-17] MEDS: SODIUM CHLORIDE 0.9% IV 1,000 ML 999 ML IV CONT (17:54)
[2024-10-17 18:43] VITALS: BP 151/87; PULSE 94; RESP 20; O2SAT 100
== END 2024-10-17 18:45 | disposition home or self-care (01) ==
PROVIDERS: Emergency Provider Registered Nurse; PCP Internal Medicine
DX: G43.909 Migraine, unspecified, not intractable, without status migrainosus (principal); R73.9 Hyperglycemia, unspecified; K21.9 Gastro-esophageal reflux disease without esophagitis; G47.30 Sleep apnea, unspecified; Z87.891 Personal history of nicotine dependence; Z79.82 Long term (current) use of aspirin
CPT/HCPCS: 36415; 70496; 70498; 80053; 82948; 84484; 85025; 85610; 85730; 93005; 96361; 96374; 96375; 99284; J1200; J1885; J2765; J7030; Q9967

== ENCOUNTER 2024-11-21 10:50 | Outpatient (RCR) | payer OTHER, SELFPAY ==
[2024-11-21 10:45] VITALS: BMI 41.8
[2024-11-21 10:54] VITALS: BMI 41.8
== END 2025-02-06 10:55 | disposition home or self-care (01) ==
LOC: ANHDMC 10:50
PROVIDERS: PCP Internal Medicine; Visit Provider Internal Medicine
DX: E11.9 Type 2 diabetes mellitus without complications (principal); Z71.3 Dietary counseling and surveillance
CPT/HCPCS: 97802